=== PATIENT | female | born 1955 | race Caucasian/White ===

== ENCOUNTER 2018-09-29 12:31 | Inpatient (IN) | payer OTHER ==
[2018-09-29 17:45] VITALS: BMI 28.1
--- NOTE | 2018-09-29 18:51 | HP ---
CIWA Score Nausea/Vomitin Muscle Tremors: 4-Moderate,w/Arms Extend Anxiety: 3 Agitation: 0-Normal Activity Paroxysmal Sweats: 2 Orientation: 1-Uncertain about Date Tacttile Disturbances: 1-Very Mild Itch/Numbness Auditory Disturbances: 1-Very Mild Visual Disturbances: 2-Mild Sensitivity Headache: 2-Mild CIWA-Ar Total Score: 19 - Admission Criteria OASAS Guidelines: Admission for Medically Managed Detox: Requires at least one of the followin. CIWA greater than 12 2. Seizures within the past 24 hours 3. Delirium tremens within the past 24 hours 4. Hallucinations within the past 24 hours 5. Acute intervention needed for co occurring medical disorder 6. Acute intervention needed for co occurring psychiatric disorder 7. Severe withdrawal that cannot be handled at a lower level of care (continued vomiting, continued diarrhea, abnormal vital signs) requiring intravenous medication and/or fluids 8. Patient presents the following: CIWA greater than 12 Admission Criteria Met: Admission criteria met Admission ROS S - [facility] Chief Complaint: " I got the shakes and I need a drink" Allergies/Adverse Reactions: Allergies Allergy/AdvReac Type Severity Reaction Status Date / Time acetaminophen [From Tylenol] Allergy Verified 09/29/18 17:46 iron Allergy Verified 09/29/18 17:46 Penicillins Allergy Verified 09/29/18 17:46 History of Present Illness: 63 yo female with hx of alcohol, cocaine and nicotine dependence is here seeking detox d/t withdrawal symptoms reports relapse six months ago after 25 years of sobriety. Last detox one month ago at [facility]. PMHX: GERD, abdominal hernia, Hep C. Psych: anxiety, insomnia on meds. Denies SI/HI. Denies hx of seizures or blackouts Exam Limitations: No Limitations - Ebola screening Have you traveled outside of the country in the last 21 days: No Have you had contact with anyone from an Ebola affected area: No - Review of Systems Constitutional: Chills, Diaphoresis, Loss of Appetite, Changes in sleep, Other ( i got shakes) EENT: reports: Other (light sensitivity) Respiratory: reports: No Symptoms reported Cardiac: reports: No Symptoms Reported GI: reports: Nausea, Vomiting, Indigestion : reports: No Symptoms Reported Musculoskeletal: reports: Back Pain, Other (leg and back cramps) Integumentary: reports: No Symptoms Reported Neuro: reports: Tingling (finger tips), Tremors Endocrine: reports: Increased Thirst Hematology: reports: No Symptoms Reported Psychiatric: reports: Orientated x3, Anxious, Depressed Other Systems: Reviewed and Negative Patient History - Patient Medical History Hx Anemia: No Hx Asthma: No Hx Chronic Obstructive Pulmonary Disease (COPD): No Hx Cancer: No Hx Cardiac Disorders: No Hx Congestive Heart Failure: No Hx Hypertension: No Hx Hypercholesterolemia: No Hx Pacemaker: No HX Cerebrovascular Accident: No Hx Seizures: No Hx Dementia: No Hx Diabetes: No Hx Gastrointestinal Disorders: Yes (abdominal hernia, gerd ) Hx Liver Disease: Yes (Hep C ) Hx Genitourinary Disorders: No Hx Sexually Transmitted Disorders: Yes (gonorrhea ) Hx Renal Disease (ESRD): No Hx Thyroid Disease: No Hx Human Immunodeficiency Virus (HIV): No Hx Hepatitis C: Yes Hx Depression: No Hx Suicide Attempt: No Hx Bipolar Disorder: No Hx Schizophrenia: No - Patient Surgical History Past Surgical History: Yes Hx Cholecystectomy: Yes - PPD History Previous Implant?: No Documented Results: Negative w/o proof PPD to be Administered?: Yes - Reproductive History Patient is a Female of Child Bearing Age (11 -55 yrs old): No - Smoking Cessation Smoking history: Current every day smoker Have you smoked in the past 12 months: Yes Aproximately how many cigarettes per day: 10 Hx Chewing Tobacco Use: No Initiated information on smoking cessation: Yes 'Breaking Loose' booklet given: 09/29/18 - Substance & Tx. History Hx Alcohol Use: Yes Hx Substance Use: Yes Substance Use Type: Alcohol Hx Substance Use Treatment: Yes (detox [facility] one month ago ) - Substances abused Alcohol Substance route: Oral Frequency: Daily Amount used: liquor- 1/2 pint + beer: 1 - 2 six pack Age of first use: 25 Date of last use: 09/29/18 Cocaine Substance route: Inhalation Frequency: 3-6 times per week Amount used: $60 Age of first use: 25 Date of last use: 09/28/18 Admission Physical Exam BHS - Vital Signs Vital Signs: Vital Signs - 24 hr 09/29/18 17:40 Temperature 98.7 F Pulse Rate 79 Respiratory 18 Rate Blood Pressure 158/98 - Physical General Appearance: Yes: Appropriately Dressed, Moderate Distress, Tremorous, Sweating, Anxious HEENTM: Yes: EOMI, Hearing grossly Normal, Normal ENT Inspection, Normocephalic , Normal Voice, TYE, Pharynx Normal, Tm's normal Respiratory: Yes: Chest Non-Tender, Lungs Clear, Normal Breath Sounds, No Respiratory Distress, No Accessory Muscle Use Neck: Yes: Within Normal Limits Breast: Yes: Breast Exam Deferred Cardiology: Yes: Regular Rhythm, Regular Rate Abdominal: Yes: Normal Bowel Sounds, Non Tender, Flat, Soft Genitourinary: Yes: Within Normal Limits Back: Yes: Normal Inspection Musculoskeletal: Yes: full range of Motion, Gait Steady, Pelvis Stable, Back pain Extremities: Yes: Normal Capillary Refill, Normal Inspection, Normal Range of Motion, Non-Tender Neurological: Yes: power 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 NML intact, Fully Oriented, Alert, Motor Strength 5/5, Depressed Affect Integumentary: Yes: Normal Color, Warm, Diaphoresis Lymphatic: Yes: Within Normal Limits - Diagnostic (1) Alcohol dependence with uncomplicated withdrawal Current Visit: Yes Status: Acute (2) Cocaine dependence Current Visit: Yes Status: Acute (3) GERD (gastroesophageal reflux disease) Current Visit: Yes Status: Chronic (4) Hepatitis C, chronic Current Visit: Yes Status: Chronic (5) Elevated blood pressure reading without diagnosis of hypertension Current Visit: Yes Status: Acute Cleared for Admission S - Detox or Rehab S Level of Care: Medically Managed Detox Regimen/Protocol: Librium Breathalyzer - Breathalyzer Breathalyzer: 0.061 POC Urine test - Test device test lot number: [id number] Expiration date: 02/07/20 - Control test control: Yes - Result Urine Test Results: Negative - NO line present Urine Drug Screen - Test Device Lot number: [id number] Expiration date: 05/08/20 - Control Is test valid?: Yes - Results Drug screen NEGATIVE: No Urine drug screen results: QIANA-Cocaine Inpatient Rehab Admission - Rehab Decision to Admit Inpatient rehab admission?: No
[2018-09-29] MEDS ORDERED: IBUPROFEN 400 MG TABLET (FP) PO PRN (18:56)
[2018-09-29] MEDS ORDERED: NICOTINE POLACRILEX 2 MG GUM BUC PRN (18:56)
[2018-09-29] MEDS ORDERED: MENTHOL/PHENOL 1 EACH UD MM PRN (18:56)
[2018-09-29] MEDS ORDERED: ONDANSETRON *ODT* 4 MG TABLET SL PRN (18:56)
[2018-09-29] MEDS ORDERED: MAGNESIUM CITRATE 300 ML BOTTLE PO PRN (18:56)
[2018-09-29] MEDS ORDERED: METHOCARBAMOL 500 MG TABLET PO PRN (18:56)
[2018-09-29] MEDS ORDERED: guaiFENesin 200 MG/10 ML 10 ML UNIT-DOSE CUPS PO PRN (18:56)
[2018-09-29] MEDS ORDERED: hydrOXYzine PAMOATE 25 MG CAPSULE (FP) PO PRN (18:56)
[2018-09-29] MEDS ORDERED: MAG HYDROX/AL HYDROX/SIMETH 30 ML UNIT-DOSE CUP PO PRN (18:56)
[2018-09-29] MEDS ORDERED: BISMUTH SUBSALICYLATE 524 MG/30 ML UD PO PRN (18:56)
[2018-09-29] MEDS ORDERED: MELATONIN 5 MG TABLETS PO PRN (18:56)
[2018-09-29] MEDS ORDERED: P-EPHED 60MG/TRIPROLIDI 2.5MG TABLET PO PRN (18:56)
[2018-09-29] MEDS ORDERED: MAGNESIUM HYDROX 2400MG/30ML ORAL SUSPENSION 30 ML CUP PO PRN (18:56)
[2018-09-29] MEDS ORDERED: cloNIDine HCL 0.1 MG TABLET PO ONE (19:30)
[2018-09-29] MEDS: chlordiazePOXIDE HCL 25 MG CAPSULE PO PRN (19:44)
[2018-09-29] MEDS: chlordiazePOXIDE HCL 25 MG CAPSULE PO SCH (22:04)
[2018-09-29] MEDS: BACLOFEN 10 MG TABLET (FP) PO SCH (22:05)
[2018-09-29] MEDS: SIMETHICONE 80 MG TAB.CHEW (FP) PO SCH (22:05)
[2018-09-29] MEDS: THIAMINE HCL 100 MG TABLET (FP) PO SCH (22:05)
[2018-09-30] MEDS: BACLOFEN 10 MG TABLET (FP) PO SCH ×3 (06:03→22:21)
[2018-09-30] MEDS: chlordiazePOXIDE HCL 25 MG CAPSULE PO SCH ×4 (06:03→22:21)
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
[2018-09-30] MEDS: SIMETHICONE 80 MG TAB.CHEW (FP) PO SCH ×4 (10:15→22:21)
[2018-09-30] MEDS: NICOTINE 14 MG/24 HOURS TOPICAL PATCH TD SCH (10:16)
[2018-09-30 12:05] LABS: HEMATOCRIT 38.6 % (32.4-45.2); HEMOGLOBIN 12.8 GM/dL (10.7-15.3); MCH 33.7 pg (25.7-33.7); MCHC 33.1 g/dl (32.0-36.0); MEAN CELL VOLUME 101.9 fl (80-96); MEAN PLT VOLUME 10.8 fl (7.5-11.1); PLATELET COUNT 140 K/MM3 (134-434); RBC 3.79 M/mm3 (3.60-5.2); RDW 12.9 % (11.6-15.6); WHITE BLOOD COUNT 3.4 K/mm3 (4.0-10.0)
[2018-09-30 12:17] LABS: ALBUMIN 3.7 g/dl (3.4-5.0); ALK PHOS 91 U/L (45-117); ANION GAP 5 MMOL/L (8-16); BILIRUBIN,TOTAL 0.4 mg/dL (0.2-1); BLOOD UREA NITROGEN 15 mg/dL (7-18); CALCIUM 9.5 mg/dL (8.5-10.1); CHLORIDE 102 mmol/L (98-107); CO2 30 mmol/L (21-32); CREATININE 0.7 mg/dL (0.55-1.3); GLUCOSE,RANDOM 118 mg/dL (74-106); POTASSIUM 4.8 mmol/L (3.5-5.1); SGOT/AST 17 U/L (15-37); SGPT/ALT 27 U/L (13-61); SODIUM 137 mmol/L (136-145); TOT PROT 7.5 g/dl (6.4-8.2)
--- NOTE | 2018-09-30 12:20 | PN ---
S CIWA - CIWA Score Nausea/Vomitin-No Nausea/No Vomiting Muscle Tremors: 4-Moderate,w/Arms Extend Anxiety: 4-Mod. Anxious/Guarded Agitation: 4-Moderately Restless Paroxysmal Sweats: 3 Orientation: 0-Oriented Tacttile Disturbances: 0-None Auditory Disturbances: 0-None Visual Disturbances: 0-None Headache: 0-None Present CIWA-Ar Total Score: 15 BHS Progress Note (SOAP) Subjective: shakes sweats interrupted sleep body aches agitation Objective: 09/30/18 12:19 Vital Signs Temperature 97.7 F 09/30/18 10:42 Pulse Rate 89 09/30/18 10:42 Respiratory Rate 18 09/30/18 10:42 Blood Pressure 122/85 09/30/18 10:42 O2 Sat by Pulse Oximetry (%) Laboratory Tests 09/30/18 09/30/18 07:30 07:30 WBC 3.4 L RBC 3.79 Hgb 12.8 Hct 38.6 MCV 101.9 H MCH 33.7 MCHC 33.1 RDW 12.9 Plt Count 140 MPV 10.8 Sodium 137 Potassium 4.8 Chloride 102 Carbon Dioxide 30 Anion Gap 5 L BUN 15 Creatinine 0.7 Creat Clearance w eGFR 84.79 Random Glucose 118 H Calcium 9.5 Total Bilirubin 0.4 AST 17 ALT 27 Alkaline Phosphatase 91 Total Protein 7.5 Albumin 3.7 aaox3 ambulating no acute distress Assessment: 09/30/18 12:19 withdrawal sx Plan: continue detox increase fluids
--- NOTE | 2018-09-30 12:30 | EKG ---
Test Reason : Blood Pressure : / mmHG Vent. Rate : 073 BPM Atrial Rate : 073 BPM P-R Int : 108 ms QRS Dur : 082 ms QT Int : 390 ms P-R-T Axes : 044 039 029 degrees QTc Int : 429 ms SINUS RHYTHM WITH SHORT AL OTHERWISE NORMAL ECG NO PREVIOUS ECGS AVAILABLE Confirmed by TAVIA RENDON, MEENAKSHI ([id number]) on 09/30/2018 12:29:35 PM Referred By: Confirmed By:MEENAKSHI SQUIRES MD
[2018-09-30] MEDS: hydrOXYzine PAMOATE 50 MG CAPSULE (FP) PO PRN (17:47)
[2018-09-30] MEDS: THIAMINE HCL 100 MG TABLET (FP) PO SCH (22:21)
[2018-10-01] MEDS: chlordiazePOXIDE HCL 25 MG CAPSULE PO SCH ×3 (05:57→16:33)
[2018-10-01] MEDS: BACLOFEN 10 MG TABLET (FP) PO SCH ×3 (05:57→22:06)
[2018-10-01] MEDS: NICOTINE 14 MG/24 HOURS TOPICAL PATCH TD SCH (10:11)
[2018-10-01] MEDS: SIMETHICONE 80 MG TAB.CHEW (FP) PO SCH ×4 (10:12→22:06)
[2018-10-01] MEDS: hydrOXYzine PAMOATE 50 MG CAPSULE (FP) PO PRN ×3 (10:14→22:06)
[2018-10-01 10:23] LABS: EPI CELLS 2.6 /HPF (0-5/HPF); URINE APPEARANCE CLEAR; URINE BACTERIA 45.2 /hpf (NEGATIVE); URINE BILIRUBIN NEGATIVE (NEGATIVE); URINE CASTS 1 /lpf (0-8); URINE COLOR YELLOW; URINE GLUCOSE (UA) NEGATIVE (NEGATIVE); URINE KETONE NEGATIVE (NEGATIVE); URINE LEUK ESTERASE TRACE (NEGATIVE); URINE NITRITE NEGATIVE (NEGATIVE); URINE PROTEIN NEGATIVE (NEGATIVE); URINE UROBILINOGEN 0.2 mg/dL (0.2-1.0); URINE WBC 4 /hpf (0-5)
[2018-10-01 11:17] LABS: URINE RBC 3.2 /hpf (0-4)
[2018-10-01] MEDS: chlordiazePOXIDE HCL 25 MG CAPSULE PO PRN (12:53)
--- NOTE | 2018-10-01 13:51 | PN ---
[facility] CIWA - CIWA Score Nausea/Vomitin-No Nausea/No Vomiting Muscle Tremors: 3 Anxiety: 3 Agitation: 3 Paroxysmal Sweats: 3 Orientation: 0-Oriented Tacttile Disturbances: 0-None Auditory Disturbances: 0-None Visual Disturbances: 0-None Headache: 0-None Present CIWA-Ar Total Score: 12 S Progress Note (SOAP) Subjective: agitation sweats shakes interrupted sleep Objective: 10/01/18 13:51 Vital Signs Temperature 97.9 F 10/01/18 09:15 Pulse Rate 83 10/01/18 09:15 Respiratory Rate 18 10/01/18 09:15 Blood Pressure 134/68 10/01/18 09:15 O2 Sat by Pulse Oximetry (%) Laboratory Tests 09/30/18 09/30/18 09/30/18 07:30 07:30 07:30 WBC 3.4 L RBC 3.79 Hgb 12.8 Hct 38.6 MCV 101.9 H MCH 33.7 MCHC 33.1 RDW 12.9 Plt Count 140 MPV 10.8 Sodium 137 Potassium 4.8 Chloride 102 Carbon Dioxide 30 Anion Gap 5 L BUN 15 Creatinine 0.7 Creat Clearance w eGFR 84.79 Random Glucose 118 H Calcium 9.5 Total Bilirubin 0.4 AST 17 ALT 27 Alkaline Phosphatase 91 Total Protein 7.5 Albumin 3.7 Urine Color Urine Appearance Urine pH Ur Specific [place] Urine Protein Urine Glucose (UA) Urine Ketones Urine Blood Urine Nitrite Urine Bilirubin Urine Urobilinogen Ur Leukocyte Esterase Urine WBC (Auto) Urine RBC (Auto) Urine Casts (Auto) U Epithel Cells (Auto) Urine Bacteria (Auto) RPR Titer Nonreactive 10/01/18 07:00 WBC RBC Hgb Hct MCV MCH MCHC RDW Plt Count MPV Sodium Potassium Chloride Carbon Dioxide Anion Gap BUN Creatinine Creat Clearance w eGFR Random Glucose Calcium Total Bilirubin AST ALT Alkaline Phosphatase Total Protein Albumin Urine Color Yellow Urine Appearance Clear Urine pH 5.0 Ur Specific [place] 1.017 Urine Protein Negative Urine Glucose (UA) Negative Urine Ketones Negative Urine Blood Negative Urine Nitrite Negative Urine Bilirubin Negative Urine Urobilinogen 0.2 Ur Leukocyte Esterase Trace Urine WBC (Auto) 4 Urine RBC (Auto) 3.2 Urine Casts (Auto) 1 U Epithel Cells (Auto) 2.6 Urine Bacteria (Auto) 45.2 RPR Titer labs noted aaox3 ambulating no acute distress Assessment: 10/01/18 13:51 withdrawal sx Plan: continue detox increase fluids
--- NOTE | 2018-10-01 17:47 | PN ---
S Progress Note Note: Vital Signs Temperature 98.2 F 10/01/18 17:30 Pulse Rate 91 H 10/01/18 17:30 Respiratory Rate 18 10/01/18 17:30 Blood Pressure 155/80 10/01/18 17:30 O2 Sat by Pulse Oximetry (%) c/o of withdrawal symptoms and tremors with minor relief from og and baclofen Patient anxious, + hand tremors, full ROM ambulating in the unit withdrawal sx gabapentin tin 100 mg TID increase po fluids continue to monitor
[2018-10-01] MEDS: chlordiazePOXIDE HCL 10 MG CAPSULE PO SCH (22:06)
[2018-10-01] MEDS: THIAMINE HCL 100 MG TABLET (FP) PO SCH (22:06)
[2018-10-01] MEDS: GABAPENTIN 100 MG CAPSULE (FP) PO SCH (22:06)
[2018-10-01] MEDS ORDERED: chlordiazePOXIDE HCL 10 MG CAPSULE PO PRN (23:00)
[2018-10-02] MEDS: chlordiazePOXIDE HCL 10 MG CAPSULE PO SCH ×2 (05:56→10:09)
[2018-10-02] MEDS: GABAPENTIN 100 MG CAPSULE (FP) PO SCH (05:56)
[2018-10-02] MEDS: BACLOFEN 10 MG TABLET (FP) PO SCH (05:56)
[2018-10-02 09:26] VITALS: BP 148/89; PULSE 86; TEMP 97.7
[2018-10-02] MEDS: SIMETHICONE 80 MG TAB.CHEW (FP) PO SCH (10:09)
[2018-10-02] MEDS: NICOTINE 14 MG/24 HOURS TOPICAL PATCH TD SCH (10:10)
[2018-10-02] MEDS ORDERED: MULTIVITAMINS (DAILY MVI) TABLET (FP) PO SCH (10:30)
--- NOTE | 2018-10-02 11:56 | PN ---
[facility] Progress Note Note: pt states she needs to go home and take care of personal business.pt was encouraged to stay and continue her detox but insisted on leaving and signed out AMA.
--- NOTE | 2018-10-02 13:12 | DS ---
[facility] Detox Discharge Summary Admission Date: 09/29/18 - History Present History: Alcohol Dependence, Cocaine Dependence - Physical Exam Results Vital Signs: Vital Signs Temperature 97.7 F 10/02/18 09:26 Pulse Rate 86 10/02/18 09:26 Respiratory Rate 18 10/02/18 09:26 Blood Pressure 148/89 10/02/18 09:26 O2 Sat by Pulse Oximetry (%) - Treatment Hospital Course: Discharged Condition Good - Medication Discharge Medications: Ambulatory Orders Cholecalciferol (Vitamin D3) [Vitamin D3 -] 1,000 unit PO DAILY 09/29/18 Simethicone [Mylicon -] 80 mg PO QID 09/29/18 - Diagnosis (1) Alcohol dependence with uncomplicated withdrawal Status: Chronic (2) Cocaine dependence Status: Chronic Qualifiers: Substance use status: uncomplicated Qualified Code(s): F14.20 - Cocaine dependence, uncomplicated (3) Elevated blood pressure reading without diagnosis of hypertension Status: Acute (4) Substance-induced sleep disorder Status: Acute (5) Anxiety disorder Status: Chronic (6) GERD (gastroesophageal reflux disease) Status: Chronic (7) Hepatitis C, chronic Status: Chronic (8) Nicotine dependence Status: Chronic Qualifiers: Nicotine product type: cigarettes Substance use status: uncomplicated Qualified Code(s): F17.210 - Nicotine dependence, cigarettes, uncomplicated (9) PTSD (post-traumatic stress disorder) Status: Ruled-out - AMA Did Patient Leave Against Medical Advice: Yes (declined aftercare; going home)
[2018-10-02] MEDS ORDERED: chlordiazePOXIDE HCL 10 MG CAPSULE PO SCH (23:00)
== END 2018-10-02 11:05 | disposition left against medical advice (07) | DRG 770 ==
LOC: YASAS 12:31 → Y6N 19:11
PROVIDERS: ADMIT Surgery; ATTEND Surgery
PROC: HZ2ZZZZ Detoxification Services for Substance Abuse Treatment (ICD-10-PCS; principal; 2018-09-29)
DX: F10.230 Alcohol dependence with withdrawal, uncomplicated (principal); F14.20 Cocaine dependence, uncomplicated; F17.210 Nicotine dependence, cigarettes, uncomplicated; F19.282 Other psychoactive substance dependence with psychoactive substance-induced sleep disorder; F43.10 Post-traumatic stress disorder, unspecified; F41.9 Anxiety disorder, unspecified; R03.0 Elevated blood-pressure reading, without diagnosis of hypertension; B18.2 Chronic viral hepatitis C; K21.9 Gastro-esophageal reflux disease without esophagitis; Z88.0 Allergy status to penicillin; Z88.8 Allergy status to other drugs, medicaments and biological substances
CPT/HCPCS: 36415; 80053; 81003; 85027; 86593; 93005; 93010; J0475; J0735

== ENCOUNTER 2018-11-17 14:22 | Inpatient (IN) | payer OTHER ==
[2018-11-17 16:32] VITALS: BMI 27.3
--- NOTE | 2018-11-17 20:16 | HP ---
CIWA Score Nausea/Vomitin-Mild Nausea/No Vomiting Muscle Tremors: 3 Anxiety: 2 Agitation: 2 Paroxysmal Sweats: 2 Orientation: 0-Oriented Tacttile Disturbances: 0-None Auditory Disturbances: 0-None Visual Disturbances: 0-None Headache: 2-Mild CIWA-Ar Total Score: 12 - Admission Criteria OASAS Guidelines: Admission for Medically Managed Detox: Requires at least one of the followin. CIWA greater than 12 2. Seizures within the past 24 hours 3. Delirium tremens within the past 24 hours 4. Hallucinations within the past 24 hours 5. Acute intervention needed for co occurring medical disorder 6. Acute intervention needed for co occurring psychiatric disorder 7. Severe withdrawal that cannot be handled at a lower level of care (continued vomiting, continued diarrhea, abnormal vital signs) requiring intravenous medication and/or fluids 8. Patient presents the following: CIWA greater than 12 Admission Criteria Met: Admission criteria met Admission ROS [facility] Chief Complaint: alcohol detox 63 yo with arthritis, ? cured HCV, on hydroxyzine 25 mg for sleeping, was last here 2 months ago for the same. Says she restarted drinking immediately. [facility] Used to work, retired 2011. Last drink this morning alcohol- 25 cans of beer every day, h/o seizures, no DT's cocaine $60/day DUR- no recent meds Allergies/Adverse Reactions: Allergies Allergy/AdvReac Type Severity Reaction Status Date / Time acetaminophen [From Tylenol] Allergy Verified 11/17/18 16:23 iron Allergy Verified 11/17/18 16:23 Penicillins Allergy Verified 11/17/18 16:23 - Ebola screening Have you traveled outside of the country in the last 21 days: No (N) Have you had contact with anyone from an Ebola affected area: No Do you have a fever: No Patient History - Patient Medical History Hx Anemia: No Hx Asthma: No Hx Chronic Obstructive Pulmonary Disease (COPD): No Hx Cancer: No Hx Cardiac Disorders: No Hx Congestive Heart Failure: No Hx Hypertension: No Hx Hypercholesterolemia: No Hx Pacemaker: No HX Cerebrovascular Accident: No Hx Seizures: No Hx Dementia: No Hx Diabetes: No Hx Gastrointestinal Disorders: Yes (abdominal hernia, gerd ) Hx Liver Disease: Yes (Hep C ) Hx Genitourinary Disorders: No Hx Sexually Transmitted Disorders: Yes (gonorrhea ) Hx Renal Disease (ESRD): No Hx Thyroid Disease: No Hx Human Immunodeficiency Virus (HIV): No Hx Hepatitis C: Yes Hx Depression: No Hx Suicide Attempt: No Hx Bipolar Disorder: No Hx Schizophrenia: No - Patient Surgical History Past Surgical History: Yes Hx Neurologic Surgery: No Hx Cataract Extraction: No Hx Cardiac Surgery: No Hx Lung Surgery: No Hx Breast Surgery: No Hx Breast Biopsy: No Hx Abdominal Surgery: No Hx Appendectomy: No Hx Cholecystectomy: Yes Hx Genitourinary Surgery: No Hx Section: No Hx Orthopedic Surgery: No Anesthesia Reaction: No - PPD History Date: 10/01/18 - Smoking Cessation Smoking history: Current every day smoker Have you smoked in the past 12 months: Yes Aproximately how many cigarettes per day: 10 Hx Chewing Tobacco Use: No Initiated information on smoking cessation: Yes 'Breaking Loose' booklet given: 11/17/18 - Substance & Tx. History Hx Alcohol Use: Yes Hx Substance Use: Yes Substance Use Type: Alcohol, Cocaine - Substances abused Alcohol Substance route: Oral Frequency: Daily Amount used: liquor- 1/2 pint + beer: 1 - 2 six pack Age of first use: 25 Date of last use: 11/17/18 Cocaine Substance route: Inhalation Frequency: 3-6 times per week Amount used: $60 Age of first use: 25 Date of last use: 11/16/18 Family Disease History - Family Disease History Family History: Denies Family Disease History: Diabetes: Mother, Heart Disease: Mother Admission Physical Exam BHS - Vital Signs Vital Signs: Vital Signs - 24 hr 11/17/18 16:23 Temperature 99.0 F Pulse Rate 96 H Respiratory 16 Rate Blood Pressure 144/82 - Physical General Appearance: Yes: Within Normal Limits, Anxious HEENTM: Yes: Within Normal Limits, Hearing grossly Normal, Normal Voice, TYE Respiratory: Yes: Within Normal Limits, Lungs Clear Neck: Yes: Within Normal Limits, No masses,lesions,Nodules Cardiology: Yes: Within Normal Limits, Regular Rhythm, Regular Rate Abdominal: Yes: Within Normal Limits, Non Tender Back: Yes: Within Normal Limits, Normal Inspection Musculoskeletal: Yes: Within Normal Limits, full range of Motion, Gait Steady Extremities: Yes: Within Normal Limits, Normal Capillary Refill Neurological: Yes: Within Normal Limits, clerk general II-XII NML intact, Fully Oriented Integumentary: Yes: Within Normal Limits, Normal Color Lymphatic: Yes: Within Normal Limits - Diagnostic (1) Alcohol dependence with uncomplicated withdrawal Current Visit: No Status: Chronic (2) Cocaine dependence Current Visit: No Status: Chronic Qualifiers: Substance use status: uncomplicated Qualified Code(s): F14.20 - Cocaine dependence, uncomplicated (3) Nicotine dependence Current Visit: No Status: Chronic Qualifiers: Nicotine product type: cigarettes Substance use status: uncomplicated Qualified Code(s): F17.210 - Nicotine dependence, cigarettes, uncomplicated Breathalyzer - Breathalyzer Breathalyzer: 0 POC Urine test - Test device test lot number: [id number] Expiration date: 02/07/20 - Control test control: Yes Urine Drug Screen - Test Device Lot number: [id number] Expiration date: 08/06/20 - Control Is test valid?: Yes - Results Drug screen NEGATIVE: No Urine drug screen results: QIANA-Cocaine, BUP-Suboxone Inpatient Rehab Admission - Rehab Decision to Admit Inpatient rehab admission?: No
[2018-11-17] MEDS ORDERED: METHOCARBAMOL 500 MG TABLET PO PRN (20:21)
[2018-11-17] MEDS ORDERED: BISMUTH SUBSALICYLATE 524 MG/30 ML UD PO PRN (20:21)
[2018-11-17] MEDS ORDERED: MAGNESIUM HYDROX 2400MG/30ML ORAL SUSPENSION 30 ML CUP PO PRN (20:21)
[2018-11-17] MEDS ORDERED: IBUPROFEN 400 MG TABLET (FP) PO PRN (20:21)
[2018-11-17] MEDS ORDERED: ACETAMINOPHEN 325 MG TABLET (FP) PO PRN ×2 (20:21)
[2018-11-17] MEDS ORDERED: chlordiazePOXIDE HCL 25 MG CAPSULE PO ONE (20:21)
[2018-11-17] MEDS ORDERED: MAGNESIUM CITRATE 300 ML BOTTLE PO PRN (20:21)
[2018-11-17] MEDS ORDERED: MENTHOL/PHENOL 1 EACH UD MM PRN (20:21)
[2018-11-17] MEDS ORDERED: MAG HYDROX/AL HYDROX/SIMETH 30 ML UNIT-DOSE CUP PO PRN (20:21)
[2018-11-17] MEDS: chlordiazePOXIDE HCL 25 MG CAPSULE PO SCH (22:43)
[2018-11-17] MEDS: THIAMINE HCL 100 MG TABLET (FP) PO SCH (22:43)
[2018-11-17] MEDS: MELATONIN 5 MG TABLETS PO PRN (22:44)
[2018-11-17] MEDS: SIMETHICONE 80 MG TAB.CHEW (FP) PO SCH (23:01)
[2018-11-18] MEDS: chlordiazePOXIDE HCL 25 MG CAPSULE PO SCH ×4 (06:46→22:36)
[2018-11-18] MEDS: SIMETHICONE 80 MG TAB.CHEW (FP) PO SCH ×4 (10:06→22:36)
[2018-11-18] MEDS: NICOTINE 14 MG/24 HOURS TOPICAL PATCH TD SCH (10:06)
[2018-11-18] MEDS: PRENATAL VITAMINS W/ FOLIC ACID TABLET (FP) PO SCH (10:06)
[2018-11-18] MEDS: CHOLECALCIFEROL (VIT D3) 1,000 UNIT (25 MCG) TABLET PO SCH (10:06)
--- NOTE | 2018-11-18 11:13 | PN ---
S CIWA - CIWA Score Nausea/Vomitin-No Nausea/No Vomiting Muscle Tremors: 3 Anxiety: 2 Agitation: 3 Paroxysmal Sweats: 3 Orientation: 0-Oriented Tacttile Disturbances: 0-None Auditory Disturbances: 0-None Visual Disturbances: 0-None Headache: 0-None Present CIWA-Ar Total Score: 11 BHS Progress Note (SOAP) Subjective: sweats tired shakes interrupted sleep body aches Objective: 11/18/18 11:24 Vital Signs Temperature 96.8 F L 11/18/18 09:59 Pulse Rate 81 11/18/18 09:59 Respiratory Rate 16 11/18/18 09:59 Blood Pressure 145/65 11/18/18 09:59 O2 Sat by Pulse Oximetry (%) Laboratory Tests 11/17/18 20:08 POC Urine HCG, Qual Negative rest of labs pending aaox3 ambulating no acute distress Assessment: 11/18/18 11:24 withdrawal sx Plan: continue detox increase fluids pending labs
[2018-11-18 12:20] LABS: HEMATOCRIT 37.4 % (32.4-45.2); HEMOGLOBIN 12.2 GM/dL (10.7-15.3); MCHC 32.6 g/dl (32.0-36.0); MEAN CELL VOLUME 101.2 fl (80-96); MEAN PLT VOLUME 10.1 fl (7.5-11.1); WHITE BLOOD COUNT 3.9 K/mm3 (4.0-10.0)
[2018-11-18 12:24] LABS: PLATELET COUNT 156 K/MM3 (134-434)
[2018-11-18 12:27] LABS: ALBUMIN 3.3 g/dl (3.4-5.0); BILIRUBIN,TOTAL 0.3 mg/dL (0.2-1); BLOOD UREA NITROGEN 14.3 mg/dL (7-18); CALCIUM 8.9 mg/dL (8.5-10.1); CREATININE 0.8 mg/dL (0.55-1.3); POTASSIUM 4.2 mmol/L (3.5-5.1); TOT PROT 6.5 g/dl (6.4-8.2)
[2018-11-18] MEDS: chlordiazePOXIDE HCL 25 MG CAPSULE PO PRN (14:05)
[2018-11-18 18:10] LABS: EPI CELLS 8.7 /HPF (0-5/HPF); HYALINE CASTS 22 /lpf (0-8); URINE APPEARANCE CLEAR; URINE BACTERIA 267.8 /hpf (NEGATIVE); URINE BILIRUBIN NEGATIVE (NEGATIVE); URINE COLOR DK YELLOW; URINE GLUCOSE (UA) NEGATIVE (NEGATIVE); URINE KETONE TRACE (NEGATIVE); URINE LEUK ESTERASE TRACE (NEGATIVE); URINE NITRITE NEGATIVE (NEGATIVE); URINE PROTEIN NEGATIVE (NEGATIVE); URINE RBC 3 /hpf (0-4); URINE UROBILINOGEN 0.2 mg/dL (0.2-1.0); URINE WBC 4 /hpf (0-5)
[2018-11-18 18:58] LABS: URINE CRYSTALS SEE COMMEN /hpf
[2018-11-18] MEDS: THIAMINE HCL 100 MG TABLET (FP) PO SCH (22:36)
[2018-11-18] MEDS: MELATONIN 5 MG TABLETS PO PRN (22:36)
[2018-11-19] MEDS: chlordiazePOXIDE HCL 25 MG CAPSULE PO SCH ×3 (06:11→17:34)
[2018-11-19] MEDS: CHOLECALCIFEROL (VIT D3) 1,000 UNIT (25 MCG) TABLET PO SCH (10:36)
[2018-11-19] MEDS: NICOTINE 14 MG/24 HOURS TOPICAL PATCH TD SCH (10:36)
[2018-11-19] MEDS: PRENATAL VITAMINS W/ FOLIC ACID TABLET (FP) PO SCH (10:36)
[2018-11-19] MEDS: SIMETHICONE 80 MG TAB.CHEW (FP) PO SCH ×4 (10:39→22:07)
--- NOTE | 2018-11-19 12:02 | PN ---
[facility] CIWA - CIWA Score Nausea/Vomitin-No Nausea/No Vomiting Muscle Tremors: 3 Anxiety: 3 Agitation: 2 Paroxysmal Sweats: 2 Orientation: 0-Oriented Tacttile Disturbances: 0-None Auditory Disturbances: 0-None Visual Disturbances: 0-None Headache: 0-None Present CIWA-Ar Total Score: 10 S Progress Note (SOAP) Subjective: low back pain sweats interrupted sleep Objective: 11/19/18 12:01 Vital Signs Temperature 97.7 F 11/19/18 09:24 Pulse Rate 80 11/19/18 09:24 Respiratory Rate 16 11/19/18 09:24 Blood Pressure 154/81 11/19/18 09:24 O2 Sat by Pulse Oximetry (%) Laboratory Tests 11/17/18 11/18/18 11/18/18 20:08 07:30 07:30 WBC 3.9 L RBC 3.70 Hgb 12.2 Hct 37.4 MCV 101.2 H MCH 33.0 MCHC 32.6 RDW 13.0 Plt Count 156 MPV 10.1 Sodium 137 Potassium 4.2 Chloride 108 H Carbon Dioxide 28 Anion Gap 2 L BUN 14.3 Creatinine 0.8 Est GFR (CKD-EPI)AfAm 91.58 Est GFR (CKD-EPI)NonAf 79.01 Random Glucose 114 H Calcium 8.9 Total Bilirubin 0.3 AST 20 ALT 31 Alkaline Phosphatase 104 Total Protein 6.5 Albumin 3.3 L Urine Color Urine Appearance Urine pH Ur Specific [place] Urine Protein Urine Glucose (UA) Urine Ketones Urine Blood Urine Nitrite Urine Bilirubin Urine Urobilinogen Ur Leukocyte Esterase Urine WBC (Auto) Urine RBC (Auto) Urine Casts (Auto) U Pathogenic Cast Auto U Epithel Cells (Auto) Urine Crystals (Auto) Urine Bacteria (Auto) POC Urine HCG, Qual Negative RPR Titer HIV 1&2 Antibody Screen HIV P24 Antigen 11/18/18 11/18/18 11/18/18 07:30 07:30 11:20 WBC RBC Hgb Hct MCV MCH MCHC RDW Plt Count MPV Sodium Potassium Chloride Carbon Dioxide Anion Gap BUN Creatinine Est GFR (CKD-EPI)AfAm Est GFR (CKD-EPI)NonAf Random Glucose Calcium Total Bilirubin AST ALT Alkaline Phosphatase Total Protein Albumin Urine Color Dk yellow Urine Appearance Clear Urine pH 5.0 Ur Specific [place] 1.024 Urine Protein Negative Urine Glucose (UA) Negative Urine Ketones Trace H Urine Blood Negative Urine Nitrite Negative Urine Bilirubin Negative Urine Urobilinogen 0.2 Ur Leukocyte Esterase Trace Urine WBC (Auto) 4 Urine RBC (Auto) 3 Urine Casts (Auto) 22 U Pathogenic Cast Auto None seen U Epithel Cells (Auto) 8.7 Urine Crystals (Auto) See commen Urine Bacteria (Auto) 267.8 POC Urine HCG, Qual RPR Titer Nonreactive HIV 1&2 Antibody Screen Negative HIV P24 Antigen Negative labs noted aaox3 lying in bed no acute distress Assessment: 11/19/18 12:02 withdrawal sx Plan: continue detox increase fluids lidocaine patch ordered motrin 600mg prn
[2018-11-19] MEDS ORDERED: LIDOCAINE 5% TOPICAL PATCH TP ONE (12:03)
[2018-11-19] MEDS ORDERED: IBUPROFEN 600 MG TABLET (FP) PO PRN (12:03)
[2018-11-19] MEDS: chlordiazePOXIDE HCL 25 MG CAPSULE PO PRN (14:32)
[2018-11-19] MEDS: hydrOXYzine PAMOATE 25 MG CAPSULE (FP) PO PRN ×2 (17:34→23:15)
[2018-11-19] MEDS: chlordiazePOXIDE HCL 10 MG CAPSULE PO SCH (22:06)
[2018-11-19] MEDS: THIAMINE HCL 100 MG TABLET (FP) PO SCH (22:07)
[2018-11-19] MEDS: MELATONIN 5 MG TABLETS PO PRN (22:07)
[2018-11-19] MEDS: LIDOCAINE PATCH REMOVAL MC SCH (22:09)
[2018-11-19] MEDS ORDERED: chlordiazePOXIDE HCL 10 MG CAPSULE PO PRN (23:00)
[2018-11-20] MEDS: chlordiazePOXIDE HCL 10 MG CAPSULE PO SCH ×4 (06:46→22:05)
[2018-11-20] MEDS ORDERED: LIDOCAINE 5% TOPICAL PATCH TP SCH ×2 (10:00→11:11)
[2018-11-20] MEDS: SIMETHICONE 80 MG TAB.CHEW (FP) PO SCH ×4 (10:29→22:05)
[2018-11-20] MEDS: PRENATAL VITAMINS W/ FOLIC ACID TABLET (FP) PO SCH (10:29)
[2018-11-20] MEDS: NICOTINE 14 MG/24 HOURS TOPICAL PATCH TD SCH (10:30)
[2018-11-20] MEDS: CHOLECALCIFEROL (VIT D3) 1,000 UNIT (25 MCG) TABLET PO SCH (10:30)
[2018-11-20] MEDS ORDERED: chlordiazePOXIDE HCL 10 MG CAPSULE PO PRN (11:10)
--- NOTE | 2018-11-20 11:22 | PN ---
[facility] CIWA - CIWA Score Nausea/Vomitin-No Nausea/No Vomiting Muscle Tremors: 3 Anxiety: 2 Agitation: 3 Paroxysmal Sweats: 2 Orientation: 0-Oriented Tacttile Disturbances: 0-None Auditory Disturbances: 0-None Visual Disturbances: 0-None Headache: 0-None Present CIWA-Ar Total Score: 10 S Progress Note (SOAP) Subjective: sweats low back pain agitation Objective: 11/20/18 11:21 Vital Signs Temperature 96.7 F L 11/20/18 09:53 Pulse Rate 85 11/20/18 09:53 Respiratory Rate 18 11/20/18 09:53 Blood Pressure 147/71 11/20/18 09:53 O2 Sat by Pulse Oximetry (%) Laboratory Tests 11/17/18 11/18/18 11/18/18 20:08 07:30 07:30 WBC 3.9 L RBC 3.70 Hgb 12.2 Hct 37.4 MCV 101.2 H MCH 33.0 MCHC 32.6 RDW 13.0 Plt Count 156 MPV 10.1 Sodium 137 Potassium 4.2 Chloride 108 H Carbon Dioxide 28 Anion Gap 2 L BUN 14.3 Creatinine 0.8 Est GFR (CKD-EPI)AfAm 91.58 Est GFR (CKD-EPI)NonAf 79.01 Random Glucose 114 H Calcium 8.9 Total Bilirubin 0.3 AST 20 ALT 31 Alkaline Phosphatase 104 Total Protein 6.5 Albumin 3.3 L Urine Color Urine Appearance Urine pH Ur Specific [place] Urine Protein Urine Glucose (UA) Urine Ketones Urine Blood Urine Nitrite Urine Bilirubin Urine Urobilinogen Ur Leukocyte Esterase Urine WBC (Auto) Urine RBC (Auto) Urine Casts (Auto) U Pathogenic Cast Auto U Epithel Cells (Auto) Urine Crystals (Auto) Urine Bacteria (Auto) POC Urine HCG, Qual Negative RPR Titer HIV 1&2 Antibody Screen HIV P24 Antigen 11/18/18 11/18/18 11/18/18 07:30 07:30 11:20 WBC RBC Hgb Hct MCV MCH MCHC RDW Plt Count MPV Sodium Potassium Chloride Carbon Dioxide Anion Gap BUN Creatinine Est GFR (CKD-EPI)AfAm Est GFR (CKD-EPI)NonAf Random Glucose Calcium Total Bilirubin AST ALT Alkaline Phosphatase Total Protein Albumin Urine Color Dk yellow Urine Appearance Clear Urine pH 5.0 Ur Specific [place] 1.024 Urine Protein Negative Urine Glucose (UA) Negative Urine Ketones Trace H Urine Blood Negative Urine Nitrite Negative Urine Bilirubin Negative Urine Urobilinogen 0.2 Ur Leukocyte Esterase Trace Urine WBC (Auto) 4 Urine RBC (Auto) 3 Urine Casts (Auto) 22 U Pathogenic Cast Auto None seen U Epithel Cells (Auto) 8.7 Urine Crystals (Auto) See commen Urine Bacteria (Auto) 267.8 POC Urine HCG, Qual RPR Titer Nonreactive HIV 1&2 Antibody Screen Negative HIV P24 Antigen Negative aaox3 ambulating no acute distress Assessment: 11/20/18 11:21 withdrawal sx Plan: continue detox 2 lidocaine patches
[2018-11-20] MEDS: chlordiazePOXIDE HCL 25 MG CAPSULE PO PRN ×2 (13:57→19:48)
--- NOTE | 2018-11-20 20:31 | PN ---
S Progress Note (SOAP) Subjective: c/o bonifacio back and kidney pain. States has been a problem for years and PCP is aware. States there are lumps. Denies burning w/ urination. . Objective: Alert. Tremors at rest which increase w/ arm elevation. Abd S/NT/BS+. Lungs CTA. C/o CVA tenderness upon examination.. No increased erythema. No masses, Vital Signs 11/20/18 11/20/18 13:23 17:55 Temperature 98.1 F 98.1 F Pulse Rate 83 92 H Respiratory 16 16 Rate Blood Pressure 158/70 152/79 Current B/P: 158/108; HR: 102; o2 Stat=97%. Laboratory Last Values WBC 3.9 K/mm3 (4.0-10.0) L 11/18/18 07:30 RBC 3.70 M/mm3 (3.60-5.2) 11/18/18 07:30 Hgb 12.2 GM/dL (10.7-15.3) 11/18/18 07:30 Hct 37.4 % (32.4-45.2) 11/18/18 07:30 MCV 101.2 fl (80-96) H 11/18/18 07:30 MCH 33.0 pg (25.7-33.7) 11/18/18 07:30 MCHC 32.6 g/dl (32.0-36.0) 11/18/18 07:30 RDW 13.0 % (11.6-15.6) 11/18/18 07:30 Plt Count 156 K/MM3 (134-434) 11/18/18 07:30 MPV 10.1 fl (7.5-11.1) 11/18/18 07:30 Sodium 137 mmol/L (136-145) 11/18/18 07:30 Potassium 4.2 mmol/L (3.5-5.1) 11/18/18 07:30 Chloride 108 mmol/L (98-107) H 11/18/18 07:30 Carbon Dioxide 28 mmol/L (21-32) 11/18/18 07:30 Anion Gap 2 MMOL/L (8-16) L 11/18/18 07:30 BUN 14.3 mg/dL (7-18) 11/18/18 07:30 Creatinine 0.8 mg/dL (0.55-1.3) 11/18/18 07:30 Est GFR (CKD-EPI)AfAm 91.58 11/18/18 07:30 Est GFR (CKD-EPI)NonAf 79.01 11/18/18 07:30 Random Glucose 114 mg/dL (74-106) H 11/18/18 07:30 Calcium 8.9 mg/dL (8.5-10.1) 11/18/18 07:30 Total Bilirubin 0.3 mg/dL (0.2-1) 11/18/18 07:30 AST 20 U/L (15-37) 11/18/18 07:30 ALT 31 U/L (13-61) 11/18/18 07:30 Alkaline Phosphatase 104 U/L (45-117) 11/18/18 07:30 Total Protein 6.5 g/dl (6.4-8.2) 11/18/18 07:30 Albumin 3.3 g/dl (3.4-5.0) L 11/18/18 07:30 Urine Color Dk yellow 11/18/18 11:20 Urine Appearance Clear 11/18/18 11:20 Urine pH 5.0 (5.0-8.0) 11/18/18 11:20 Ur Specific [place] 1.024 (1.010-1.035) 11/18/18 11:20 Urine Protein Negative (NEGATIVE) 11/18/18 11:20 Urine Glucose (UA) Negative (NEGATIVE) 11/18/18 11:20 Urine Ketones Trace (NEGATIVE) H 11/18/18 11:20 Urine Blood Negative (NEGATIVE) 11/18/18 11:20 Urine Nitrite Negative (NEGATIVE) 11/18/18 11:20 Urine Bilirubin Negative (NEGATIVE) 11/18/18 11:20 Urine Urobilinogen 0.2 mg/dL (0.2-1.0) 11/18/18 11:20 Ur Leukocyte Esterase Trace (NEGATIVE) 11/18/18 11:20 Urine WBC (Auto) 4 /hpf (0-5) 11/18/18 11:20 Urine RBC (Auto) 3 /hpf (0-4) 11/18/18 11:20 Urine Casts (Auto) 22 /lpf (0-8) 11/18/18 11:20 U Pathogenic Cast Auto None seen /lpf (NEGATIVE) 11/18/18 11:20 U Epithel Cells (Auto) 8.7 /HPF (0-5/HPF) 11/18/18 11:20 Urine Crystals (Auto) See commen /hpf 11/18/18 11:20 Urine Bacteria (Auto) 267.8 /hpf (NEGATIVE) 11/18/18 11:20 POC Urine HCG, Qual Negative 11/17/18 20:08 RPR Titer Nonreactive (NONREACTIVE) 11/18/18 07:30 HIV 1&2 Antibody Screen Negative 11/18/18 07:30 HIV P24 Antigen Negative 11/18/18 07:30 Labs reviewed. Assessment: Flank pain. Alcohol withdrawal. Plan: Repeat UA. Encourage Librium Repeat B/P and notify Provider if still elevated.
[2018-11-20] MEDS: THIAMINE HCL 100 MG TABLET (FP) PO SCH (22:05)
[2018-11-20] MEDS: LIDOCAINE PATCH REMOVAL MC SCH (22:05)
[2018-11-20] MEDS: MELATONIN 5 MG TABLETS PO PRN (22:07)
[2018-11-21] MEDS: hydrOXYzine PAMOATE 25 MG CAPSULE (FP) PO PRN (00:38)
[2018-11-21] MEDS: chlordiazePOXIDE HCL 25 MG CAPSULE PO PRN ×2 (00:38→05:28)
[2018-11-21 06:57] VITALS: BP 156/93; PULSE 92; TEMP 97.2
[2018-11-21] MEDS: NICOTINE 14 MG/24 HOURS TOPICAL PATCH TD SCH (10:04)
[2018-11-21] MEDS: CHOLECALCIFEROL (VIT D3) 1,000 UNIT (25 MCG) TABLET PO SCH (10:05)
[2018-11-21] MEDS: PRENATAL VITAMINS W/ FOLIC ACID TABLET (FP) PO SCH (10:05)
[2018-11-21] MEDS: chlordiazePOXIDE HCL 10 MG CAPSULE PO SCH (10:05)
[2018-11-21] MEDS: SIMETHICONE 80 MG TAB.CHEW (FP) PO SCH (10:05)
--- NOTE | 2018-11-21 13:22 | PN ---
[facility] CIWA - CIWA Score Nausea/Vomitin-No Nausea/No Vomiting Muscle Tremors: 2 Anxiety: 1-Mildly Anxious Agitation: 0-Normal Activity Paroxysmal Sweats: No Perspiration Orientation: 0-Oriented Tacttile Disturbances: 0-None Auditory Disturbances: 0-None Visual Disturbances: 0-None Headache: 0-None Present CIWA-Ar Total Score: 3 BHS Progress Note (SOAP) Subjective: Denies any complaints Objective: 11/21/18 13:30 No acute distress noted Gait steady Vital Signs Temperature 97.2 F L 11/21/18 06:00 Pulse Rate 92 H 11/21/18 06:00 Respiratory Rate 18 11/21/18 06:00 Blood Pressure 156/93 11/21/18 06:00 O2 Sat by Pulse Oximetry (%) Assessment: 11/21/18 13:30 detox completed Plan: for discharge
--- NOTE | 2018-11-21 13:33 | DS ---
[facility] Detox Discharge Summary Admission Date: 11/17/18 Discharge Date: 11/21/18 - History Additional Comments: Pt completed detox successfully States she is going back to her residence [facility] at [address] [place] [address] She said she "gets everything " at the building and that they will take care of her aftercare and medical needs there. She declines any home meds, stating that "they have it there". Denies any complaints - Physical Exam Results Vital Signs: Vital Signs Temperature 97.2 F L 11/21/18 06:00 Pulse Rate 92 H 11/21/18 06:00 Respiratory Rate 18 11/21/18 06:00 Blood Pressure 156/93 11/21/18 06:00 O2 Sat by Pulse Oximetry (%) Pertinent Admission Physical Exam Findings: withdrawal sx - Treatment Hospital Course: Detox Protocol Followed, Detoxed Safely, Responded well, Discharged Condition Good - Medication Discharge Medications: Ambulatory Orders Cholecalciferol (Vitamin D3) [Vitamin D3 -] 1,000 unit PO DAILY 09/29/18 Simethicone [Mylicon -] 80 mg PO QID 09/29/18 - AMA Did Patient Leave Against Medical Advice: No
== END 2018-11-21 10:52 | disposition home or self-care (01) | DRG 774 ==
LOC: YASAS 14:22 → Y6N 20:42
PROVIDERS: ADMIT Surgery; ATTEND Surgery
PROC: HZ2ZZZZ Detoxification Services for Substance Abuse Treatment (ICD-10-PCS; principal; 2018-11-17)
DX: F10.230 Alcohol dependence with withdrawal, uncomplicated (principal); F14.20 Cocaine dependence, uncomplicated; F17.210 Nicotine dependence, cigarettes, uncomplicated; K21.9 Gastro-esophageal reflux disease without esophagitis; R10.9 Unspecified abdominal pain; B18.2 Chronic viral hepatitis C; Z87.42 Personal history of other diseases of the female genital tract; Z88.0 Allergy status to penicillin; Z88.6 Allergy status to analgesic agent
CPT/HCPCS: 36415; 80053; 81003; 81025; 85027; 86593; 87389

== ENCOUNTER 2018-12-24 10:26 | Inpatient (IN) | payer OTHER ==
[2018-12-24 11:51] VITALS: BMI 27.3
--- NOTE | 2018-12-24 14:53 | HP ---
CIWA Score Nausea/Vomitin-Mild Nausea/No Vomiting Muscle Tremors: 3 Anxiety: 1-Mildly Anxious Agitation: 1-Slight > Activity Paroxysmal Sweats: 2 Orientation: 0-Oriented Tacttile Disturbances: 1-Very Mild Itch/Numbness Auditory Disturbances: 1-Very Mild Visual Disturbances: 0-None Headache: 2-Mild CIWA-Ar Total Score: 12 - Admission Criteria OASAS Guidelines: Admission for Medically Managed Detox: Requires at least one of the followin. CIWA greater than 12 2. Seizures within the past 24 hours 3. Delirium tremens within the past 24 hours 4. Hallucinations within the past 24 hours 5. Acute intervention needed for co occurring medical disorder 6. Acute intervention needed for co occurring psychiatric disorder 7. Severe withdrawal that cannot be handled at a lower level of care (continued vomiting, continued diarrhea, abnormal vital signs) requiring intravenous medication and/or fluids 8. Admission [facility] Chief Complaint: 63 y/o F with PMH hep B (tx in past), hep C (not on tx), anxiety, GERD, hiatal hernia, arthritis, who presents for detox from alcohol and cocaine. Allergies/Adverse Reactions: Allergies Allergy/AdvReac Type Severity Reaction Status Date / Time acetaminophen [From Tylenol] Allergy Verified 12/24/18 11:42 iron Allergy Verified 12/24/18 11:42 Penicillins Allergy Verified 12/24/18 11:42 History of Present Illness: 63 y/o F with PMH hep B (tx in past), hep C (not on tx), anxiety, GERD, hiatal hernia, arthritis, who presents for detox from alcohol and cocaine. Per pt, her last drink was at 3AM today. States that throughout the course of yesterday, she drank 4 cases of beer (24 beers total). Drinks daily and at times can go through 50 small cans of beer. Longest sobriety 25 yrs; had been going to rehab and residential living where she was supported "while clean." States that she relapsed 8 months ago because her mother and she was feeling sad. Has had blackouts in the past. Denies alcohol withdrawal seizures. States that she feels tremulous when she withdraws. During this time has also used cocaine when she sees friends. Last used $20 worth via smoking yesterday. States that it is not frequent and usually once every 2-3 weeks. Denies other drug use. Was at rehab/detox at [facility] this year, [facility] well as [facility] past. Was at [facility] in rehab 11/2018, detox 11/2018. PMH: as above PsxH: lap jass, L breast lumpectomy, LLE sx meds: hydroxyzine 25mg qd, vit D allergies: acetaminophen, iron, PCN , fructose, apple peels- cause SOB FH: mother - DM, HTN. asthma in all brothers and sisters SH: retired in 2011 d/t extensive arthritis in her lumbar region. has smoked 1 ppd x since age 21. alcohol and cocaine use as above. denies other drugs. Exam Limitations: No Limitations - Ebola screening Have you traveled outside of the country in the last 21 days: No Have you had contact with anyone from an Ebola affected area: No Have you been sick,other than usual withdrawal symptoms: No Do you have a fever: No - Review of Systems Constitutional: Chills, Night Sweats, Unintentional Wgt. Loss EENT: reports: Nose Congestion Respiratory: reports: No Symptoms reported Cardiac: reports: No Symptoms Reported GI: reports: Constipated, Diarrhea, Nausea : reports: No Symptoms Reported Musculoskeletal: reports: Back Pain, Joint Pain Integumentary: reports: No Symptoms Reported Neuro: reports: Headache Endocrine: reports: No Symptoms Reported Hematology: reports: No Symptoms Reported Psychiatric: reports: Orientated x3, Depressed Patient History - Patient Medical History Hx Anemia: No Hx Asthma: No Hx Chronic Obstructive Pulmonary Disease (COPD): No Hx Cancer: No Hx Cardiac Disorders: No Hx Congestive Heart Failure: No Hx Hypertension: No Hx Hypercholesterolemia: No Hx Pacemaker: No HX Cerebrovascular Accident: No Hx Seizures: No Hx Dementia: No Hx Diabetes: No Hx Gastrointestinal Disorders: Yes (abdominal hernia, GERD) Hx Liver Disease: Yes (Hep C ) Hx Genitourinary Disorders: No Hx Sexually Transmitted Disorders: Yes (gonorrhea ) Hx Renal Disease (ESRD): No Hx Thyroid Disease: No Hx Human Immunodeficiency Virus (HIV): No Hx Hepatitis C: Yes Hx Depression: No Hx Suicide Attempt: No Hx Bipolar Disorder: No Hx Schizophrenia: No - Patient Surgical History Past Surgical History: Yes Hx Neurologic Surgery: No Hx Cataract Extraction: No Hx Cardiac Surgery: No Hx Lung Surgery: No Hx Breast Surgery: No Hx Breast Biopsy: No Hx Abdominal Surgery: No Hx Appendectomy: No Hx Cholecystectomy: Yes Hx Genitourinary Surgery: No Hx Section: No Hx Orthopedic Surgery: No Other Surgical History: L leg sx Anesthesia Reaction: No - PPD History Documented Results: Negative w/o proof Date: 10/01/18 PPD to be Administered?: No - Reproductive History Patient is a Female of Child Bearing Age (11 -55 yrs old): No Patient : No - Smoking Cessation Smoking history: Current every day smoker Have you smoked in the past 12 months: Yes Aproximately how many cigarettes per day: 10 Hx Chewing Tobacco Use: No Initiated information on smoking cessation: Yes 'Breaking Loose' booklet given: 12/24/18 - Substance & Tx. History Hx Alcohol Use: Yes Substance Use Type: Alcohol, Cocaine Hx Substance Use Treatment: Yes ([facility] 2019, jordan, breezy) - Substances abused Alcohol Substance route: Oral Frequency: Daily Amount used: 30 (120z)cans beer Age of first use: 25 Date of last use: 12/23/18 Cocaine Substance route: Smoking Frequency: 1-3 times last 30 days Amount used: $40 Age of first use: 25 Date of last use: 12/23/18 Family Disease History - Family Disease History Family Disease History: Diabetes: Mother, Heart Disease: Mother Admission Physical Exam S - Vital Signs Vital Signs: Vital Signs - 24 hr 12/24/18 12/24/18 11:46 12:13 Temperature 97.6 F 97.6 F Pulse Rate 66 66 Respiratory 16 16 Rate Blood Pressure 140/82 140/82 - Physical General Appearance: Yes: Within Normal Limits HEENTM: Yes: Normal ENT Inspection Respiratory: Yes: Lungs Clear Neck: Yes: Supple Breast: Yes: Breast Exam Deferred Cardiology: Yes: S1, S2 Abdominal: Yes: Soft Genitourinary: Yes: Within Normal Limits Back: Yes: Normal Inspection, Other (+TTP lumbar spine) Musculoskeletal: Yes: Back pain Extremities: Yes: Normal Capillary Refill Neurological: Yes: voice writing reporter II-XII NML intact Integumentary: Yes: Dry, Warm Lymphatic: Yes: Within Normal Limits - Diagnostic (1) Alcohol dependence with uncomplicated withdrawal Current Visit: Yes Status: Chronic (2) Anxiety disorder Current Visit: Yes Status: Chronic (3) Cocaine dependence Current Visit: Yes Status: Chronic Qualifiers: Substance use status: uncomplicated Qualified Code(s): F14.20 - Cocaine dependence, uncomplicated (4) GERD (gastroesophageal reflux disease) Current Visit: Yes Status: Chronic (5) Hepatitis C, chronic Current Visit: Yes Status: Chronic (6) Nicotine dependence Current Visit: Yes Status: Chronic Qualifiers: Nicotine product type: cigarettes Substance use status: uncomplicated Qualified Code(s): F17.210 - Nicotine dependence, cigarettes, uncomplicated Cleared for Admission S - Detox or Rehab [facility] Level of Care: Medically Managed Detox Regimen/Protocol: Librium Breathalyzer - Breathalyzer Breathalyzer: 0 POC Urine test - Test device test lot number: [id number] Expiration date: 02/07/20 - Control test control: Yes Urine Drug Screen - Test Device Lot number: [id number] Expiration date: 10/06/20 - Control Is test valid?: Yes - Results Drug screen NEGATIVE: No Urine drug screen results: THC-Marijuana, BUP-Suboxone Inpatient Rehab Admission - Rehab Decision to Admit Inpatient rehab admission?: No
[2018-12-24] MEDS ORDERED: BISMUTH SUBSALICYLATE 524 MG/30 ML UD PO PRN (15:12)
[2018-12-24] MEDS ORDERED: MENTHOL/PHENOL 1 EACH UD MM PRN (15:12)
[2018-12-24] MEDS ORDERED: IBUPROFEN 400 MG TABLET (FP) PO PRN (15:12)
--- NOTE | 2018-12-24 16:31 | PN ---
Teaching Attending Note Name of Resident: Angie Moore ATTENDING PHYSICIAN STATEMENT I saw and evaluated the patient. I reviewed the resident's note and discussed the case with the resident. I agree with the resident's findings and plan as documented. SUBJECTIVE: ETOH DEP OBJECTIVE: ACUTE WITHDRAWAL ASSESSMENT AND PLAN: ADMIT AND DETOX
[2018-12-24] MEDS: chlordiazePOXIDE HCL 25 MG CAPSULE PO SCH ×2 (16:48→22:14)
[2018-12-24] MEDS: NICOTINE 7 MG/24 HOURS TOPICAL PATCH TD SCH (16:48)
[2018-12-24] MEDS: METHOCARBAMOL 500 MG TABLET PO PRN (16:49)
[2018-12-24] MEDS: MAG HYDROX/AL HYDROX/SIMETH 30 ML UNIT-DOSE CUP PO PRN (17:43)
[2018-12-24] MEDS: MAGNESIUM HYDROX 2400MG/30ML ORAL SUSPENSION 30 ML CUP PO PRN (20:11)
[2018-12-24] MEDS: THIAMINE HCL 100 MG TABLET (FP) PO SCH (22:14)
[2018-12-24] MEDS: MELATONIN 5 MG TABLETS PO PRN (22:15)
[2018-12-25] MEDS: chlordiazePOXIDE HCL 25 MG CAPSULE PO SCH ×4 (05:17→22:31)
[2018-12-25] MEDS: CHOLECALCIFEROL (VIT D3) 1,000 UNIT (25 MCG) TABLET PO SCH (10:07)
[2018-12-25] MEDS: NICOTINE 7 MG/24 HOURS TOPICAL PATCH TD SCH (10:07)
[2018-12-25 12:20] LABS: HEMATOCRIT 35.8 % (32.4-45.2); HEMOGLOBIN 12.1 GM/dL (10.7-15.3); MCH 33.7 pg (25.7-33.7); MCHC 33.7 g/dl (32.0-36.0); MEAN CELL VOLUME 99.9 fl (80-96); MEAN PLT VOLUME 10.4 fl (7.5-11.1); PLATELET COUNT 138 K/MM3 (134-434); RBC 3.58 M/mm3 (3.60-5.2); RDW 12.7 % (11.6-15.6); WHITE BLOOD COUNT 3.3 K/mm3 (4.0-10.0)
--- NOTE | 2018-12-25 12:34 | PN ---
[facility] CIWA - CIWA Score Nausea/Vomitin-Mild Nausea/No Vomiting Muscle Tremors: 2 Anxiety: 2 Agitation: 1-Slight > Activity Paroxysmal Sweats: 3 Orientation: 0-Oriented Tacttile Disturbances: 2-Mild Itch/Numbness/Burn Auditory Disturbances: 0-None Visual Disturbances: 0-None Headache: 0-None Present CIWA-Ar Total Score: 11 S Progress Note (SOAP) Subjective: interrupted sleep, sweats heartburn , Objective: 12/25/18 12:32 Vital Signs Temperature 98.7 F 12/25/18 09:21 Pulse Rate 63 12/25/18 09:21 Respiratory Rate 18 12/25/18 09:21 Blood Pressure 145/77 12/25/18 09:21 O2 Sat by Pulse Oximetry (%) Laboratory Tests 12/25/18 07:00 WBC 3.3 L RBC 3.58 L Hgb 12.1 Hct 35.8 MCV 99.9 H MCH 33.7 MCHC 33.7 RDW 12.7 Plt Count 138 MPV 10.4 pending labs pt aox3 in nad ambulating Assessment: 12/25/18 12:33 withdrawal sx's gerd Plan: cont. detox increase fluids protonix 40mg /day
[2018-12-25 12:36] LABS: ALBUMIN 3.6 g/dl (3.4-5.0); BILIRUBIN,TOTAL 0.3 mg/dL (0.2-1); BLOOD UREA NITROGEN 18.7 mg/dL (7-18); CALCIUM 8.8 mg/dL (8.5-10.1); CREATININE 0.7 mg/dL (0.55-1.3); POTASSIUM 4.1 mmol/L (3.5-5.1); TOT PROT 6.9 g/dl (6.4-8.2)
[2018-12-25] MEDS ORDERED: PANTOPRAZOLE 40 MG TABLET (FP) PO ONE (13:00)
[2018-12-25] MEDS ORDERED: MAGNESIUM CITRATE 300 ML BOTTLE PO ONE (19:18)
[2018-12-25] MEDS: MAG HYDROX/AL HYDROX/SIMETH 30 ML UNIT-DOSE CUP PO PRN (19:21)
[2018-12-25] MEDS: MAGNESIUM HYDROX 2400MG/30ML ORAL SUSPENSION 30 ML CUP PO PRN (19:21)
[2018-12-25] MEDS: chlordiazePOXIDE HCL 25 MG CAPSULE PO PRN (20:04)
[2018-12-25] MEDS: THIAMINE HCL 100 MG TABLET (FP) PO SCH (22:31)
[2018-12-25] MEDS: hydrOXYzine HCL 25 MG TABLET (FP) PO PRN (22:31)
[2018-12-25] MEDS: METHOCARBAMOL 500 MG TABLET PO PRN (22:31)
[2018-12-25] MEDS ORDERED: MELATONIN 5 MG TABLETS PO ONE (23:51)
[2018-12-26] MEDS: chlordiazePOXIDE HCL 25 MG CAPSULE PO SCH ×4 (06:09→22:06)
[2018-12-26] MEDS: METHOCARBAMOL 500 MG TABLET PO PRN ×2 (06:32→17:30)
[2018-12-26] MEDS: NICOTINE 7 MG/24 HOURS TOPICAL PATCH TD SCH (10:35)
[2018-12-26] MEDS: PANTOPRAZOLE 40 MG TABLET (FP) PO SCH (10:35)
[2018-12-26] MEDS: CHOLECALCIFEROL (VIT D3) 1,000 UNIT (25 MCG) TABLET PO SCH (10:35)
--- NOTE | 2018-12-26 11:49 | PN ---
S CIWA - CIWA Score Nausea/Vomitin-No Nausea/No Vomiting Muscle Tremors: 2 Anxiety: 3 Agitation: 1-Slight > Activity Paroxysmal Sweats: 3 Orientation: 0-Oriented Tacttile Disturbances: 0-None Auditory Disturbances: 0-None Visual Disturbances: 0-None Headache: 2-Mild CIWA-Ar Total Score: 11 S Progress Note (SOAP) Subjective: c/o sweats, headache, anxiety, and shakes. Objective: 12/26/18 11:48 Vital Signs 12/26/18 12/26/18 08:18 09:00 Temperature 97 F L 98.1 F Pulse Rate 67 88 Respiratory 18 16 Rate Blood Pressure 141/78 116/65 Lab Results WBC 3.3 K/mm3 (4.0-10.0) L 12/25/18 07:00 RBC 3.58 M/mm3 (3.60-5.2) L 12/25/18 07:00 Hgb 12.1 GM/dL (10.7-15.3) 12/25/18 07:00 Hct 35.8 % (32.4-45.2) 12/25/18 07:00 MCV 99.9 fl (80-96) H 12/25/18 07:00 MCHC 33.7 g/dl (32.0-36.0) 12/25/18 07:00 RDW 12.7 % (11.6-15.6) 12/25/18 07:00 Plt Count 138 K/MM3 (134-434) 12/25/18 07:00 Sodium 140 mmol/L (136-145) 12/25/18 07:00 Potassium 4.1 mmol/L (3.5-5.1) 12/25/18 07:00 Chloride 104 mmol/L (98-107) 12/25/18 07:00 Carbon Dioxide 32 mmol/L (21-32) 12/25/18 07:00 Anion Gap 4 MMOL/L (8-16) L 12/25/18 07:00 BUN 18.7 mg/dL (7-18) H 12/25/18 07:00 Creatinine 0.7 mg/dL (0.55-1.3) 12/25/18 07:00 Random Glucose 114 mg/dL (74-106) H 12/25/18 07:00 Calcium 8.8 mg/dL (8.5-10.1) 12/25/18 07:00 Labs noted. Assessment: 12/26/18 11:49 AOX3, in no acute distress. Full ROM, ambulating in the unit. withdrawal symptoms. Plan: continue detox.
[2018-12-26] MEDS: chlordiazePOXIDE HCL 25 MG CAPSULE PO PRN ×2 (14:30→19:49)
[2018-12-26] MEDS: MELATONIN 5 MG TABLETS PO PRN (22:06)
[2018-12-26] MEDS: THIAMINE HCL 100 MG TABLET (FP) PO SCH (22:06)
[2018-12-26] MEDS: hydrOXYzine HCL 25 MG TABLET (FP) PO PRN (23:46)
[2018-12-27] MEDS: chlordiazePOXIDE HCL 10 MG CAPSULE PO SCH ×4 (06:32→22:06)
[2018-12-27] MEDS: METHOCARBAMOL 500 MG TABLET PO PRN (06:35)
[2018-12-27] MEDS: CHOLECALCIFEROL (VIT D3) 1,000 UNIT (25 MCG) TABLET PO SCH (10:54)
[2018-12-27] MEDS: PANTOPRAZOLE 40 MG TABLET (FP) PO SCH (10:54)
[2018-12-27] MEDS: NICOTINE 7 MG/24 HOURS TOPICAL PATCH TD SCH (10:54)
--- NOTE | 2018-12-27 13:44 | PN ---
S CIWA - CIWA Score Nausea/Vomitin-Mild Nausea/No Vomiting Muscle Tremors: 2 Anxiety: 2 Agitation: 0-Normal Activity Paroxysmal Sweats: 2 Orientation: 0-Oriented Tacttile Disturbances: 0-None Auditory Disturbances: 0-None Visual Disturbances: 0-None Headache: 1-Very Mild CIWA-Ar Total Score: 8 BHS Progress Note (SOAP) Subjective: Patient c/o headache, anxiety, sweating and nausea Objective: 12/27/18 13:43 Laboratory Tests 12/24/18 12/25/18 12/25/18 12:14 07:00 07:00 WBC 3.3 L RBC 3.58 L Hgb 12.1 Hct 35.8 MCV 99.9 H MCH 33.7 MCHC 33.7 RDW 12.7 Plt Count 138 MPV 10.4 Sodium 140 Potassium 4.1 Chloride 104 Carbon Dioxide 32 Anion Gap 4 L BUN 18.7 H Creatinine 0.7 Est GFR (CKD-EPI)AfAm 107.62 Est GFR (CKD-EPI)NonAf 92.86 Random Glucose 114 H Calcium 8.8 Total Bilirubin 0.3 AST 18 ALT 29 Alkaline Phosphatase 92 Total Protein 6.9 Albumin 3.6 POC Urine HCG, Qual Negative RPR Titer HIV 1&2 Antibody Screen HIV P24 Antigen 12/25/18 12/25/18 07:00 07:00 WBC RBC Hgb Hct MCV MCH MCHC RDW Plt Count MPV Sodium Potassium Chloride Carbon Dioxide Anion Gap BUN Creatinine Est GFR (CKD-EPI)AfAm Est GFR (CKD-EPI)NonAf Random Glucose Calcium Total Bilirubin AST ALT Alkaline Phosphatase Total Protein Albumin POC Urine HCG, Qual RPR Titer Nonreactive HIV 1&2 Antibody Screen Negative HIV P24 Antigen Negative Last Vital Signs Temp Pulse Resp BP Pulse Ox 98.2 F 76 18 100/78 12/27/18 09:40 12/27/18 09:40 12/27/18 09:40 12/27/18 09:40 PE: alert and oriented x 3 + facial moisture +perrla eoms intact bl ext full rom, mild tremors amb ad og Assessment: 12/27/18 13:44 withdrawal sx Plan: continue detox monitor
[2018-12-27] MEDS: chlordiazePOXIDE HCL 10 MG CAPSULE PO PRN ×2 (15:16→19:28)
[2018-12-27] MEDS: MAG HYDROX/AL HYDROX/SIMETH 30 ML UNIT-DOSE CUP PO PRN (21:08)
[2018-12-27] MEDS: THIAMINE HCL 100 MG TABLET (FP) PO SCH (22:06)
[2018-12-27] MEDS: MELATONIN 5 MG TABLETS PO PRN (22:07)
[2018-12-27 23:12] VITALS: BP 132/90; PULSE 85; TEMP 98.2
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
[2018-12-28] MEDS ORDERED: chlordiazePOXIDE HCL 10 MG CAPSULE PO SCH (05:00)
[2018-12-29] MEDS ORDERED: chlordiazePOXIDE HCL 10 MG CAPSULE PO ONE (05:00)
== END 2018-12-27 23:47 | disposition left against medical advice (07) | DRG 770 ==
LOC: YASAS 10:26 → Y6N 15:46
PROVIDERS: ADMIT Surgery; ATTEND Surgery
PROC: HZ2ZZZZ Detoxification Services for Substance Abuse Treatment (ICD-10-PCS; principal; 2018-12-24)
DX: F10.230 Alcohol dependence with withdrawal, uncomplicated (principal); F14.20 Cocaine dependence, uncomplicated; F17.210 Nicotine dependence, cigarettes, uncomplicated; F19.282 Other psychoactive substance dependence with psychoactive substance-induced sleep disorder; F41.9 Anxiety disorder, unspecified; K21.9 Gastro-esophageal reflux disease without esophagitis; R03.0 Elevated blood-pressure reading, without diagnosis of hypertension; B18.2 Chronic viral hepatitis C; Z88.0 Allergy status to penicillin; Z88.6 Allergy status to analgesic agent
CPT/HCPCS: 36415; 80053; 81025; 85027; 86593; 87389

== ENCOUNTER 2019-03-22 11:37 | Inpatient (IN) | payer OTHER ==
[2019-03-22 12:07] VITALS: BMI 24.9
--- NOTE | 2019-03-22 12:48 | HP ---
CIWA Score Nausea/Vomitin Muscle Tremors: 5 Anxiety: 1-Mildly Anxious Agitation: 0-Normal Activity Paroxysmal Sweats: 2 Orientation: 0-Oriented Tacttile Disturbances: 0-None Auditory Disturbances: 0-None Visual Disturbances: 0-None Headache: 2-Mild CIWA-Ar Total Score: 13 - Admission Criteria OASAS Guidelines: Admission for Medically Managed Detox: Requires at least one of the followin. CIWA greater than 12 2. Seizures within the past 24 hours 3. Delirium tremens within the past 24 hours 4. Hallucinations within the past 24 hours 5. Acute intervention needed for co occurring medical disorder 6. Acute intervention needed for co occurring psychiatric disorder 7. Severe withdrawal that cannot be handled at a lower level of care (continued vomiting, continued diarrhea, abnormal vital signs) requiring intravenous medication and/or fluids 8. Admitting History and Physical - Smoking History Smoking history: Current every day smoker Have you smoked in the past 12 months: Yes Aproximately how many cigarettes per day: 10 - Alcohol/Substance Use Hx Alcohol Use: Yes Admission [facility] Chief Complaint: "detox from alcohol" Allergies/Adverse Reactions: Allergies Allergy/AdvReac Type Severity Reaction Status Date / Time fructose Allergy Intermediate Verified 03/22/19 12:02 acetaminophen [From Tylenol] Allergy Verified 03/22/19 12:02 iron Allergy Verified 03/22/19 12:02 Penicillins Allergy Verified 03/22/19 12:02 History of Present Illness: 63 y/o F with PMH hep B (tx in past), hep C (not on tx), anxiety, GERD, hiatal hernia, arthritis, cramps who presents for detox from alcohol and cocaine. Last drink last night. Longest sobriety is 25 years. Last in detox in December, but relapsed after she came home and fell to the ground, started to feel "the shakes " and had to drink alcohol again to prevent them. Alcohol: last used yesterday, 15 cans of tall beer daily. Has blacked out in the past. Denies alcohol withdrawal seizures. Reports getting tremulous when she starts to withdraw. Started drinking 24 years ago Cocaine: $40-60 dollars per day, last used last night; smokes it, started drinking 24 years ago Cigarettes: 1 pack a day since 25 years old PSH: Eric cota breast lumpectomy, LUISA sx Lives at "drug infested building" allergies: acetaminophen, iron, PCN , fructose, apple peels- cause SOB FH: mother - DM, HTN. asthma in all brothers and sisters SH: retired in 2011 d/t extensive arthritis in her lumbar region. has smoked 1 ppd x since age 21. Was at rehab/detox at [facility] this year, as well as [facility] in the distant past. Was at [facility] in rehab 11/2018, detox 11/2018. - Ebola screening Have you traveled outside of the country in the last 21 days: No Have you had contact with anyone from an Ebola affected area: No Do you have a fever: No - Review of Systems Constitutional: Chills, Diaphoresis, Fever, Unintentional Wgt. Loss EENT: reports: Nose Congestion Respiratory: reports: Cough, Productive cough Cardiac: reports: Lightheadedness GI: reports: Diarrhea : reports: No Symptoms Reported Musculoskeletal: reports: Back Pain, Joint Pain, Muscle Pain Integumentary: reports: No Symptoms Reported Neuro: reports: Headache, Numbness Endocrine: reports: No Symptoms Reported, Change in Weight Hematology: reports: No Symptoms Reported Psychiatric: reports: Judgement Intact, Mood/Affect Appropiate, Orientated x3 Patient History - Patient Medical History Hx Anemia: No Hx Asthma: No Hx Chronic Obstructive Pulmonary Disease (COPD): No Hx Cancer: No Hx Cardiac Disorders: No Hx Congestive Heart Failure: No Hx Hypertension: No Hx Hypercholesterolemia: No Hx Pacemaker: No HX Cerebrovascular Accident: No Hx Seizures: No Hx Dementia: No Hx Diabetes: No Hx Gastrointestinal Disorders: Yes (Hx GERD) Hx Liver Disease: Yes (Hep C ) Hx Genitourinary Disorders: No Hx Sexually Transmitted Disorders: No Hx Renal Disease (ESRD): No Hx Thyroid Disease: No Hx Human Immunodeficiency Virus (HIV): No Hx Hepatitis C: Yes Hx Depression: Yes Hx Suicide Attempt: No Hx Bipolar Disorder: No Hx Schizophrenia: No - Patient Surgical History Past Surgical History: Yes Hx Neurologic Surgery: No Hx Cataract Extraction: No Hx Cardiac Surgery: No Hx Lung Surgery: No Hx Breast Surgery: No Hx Breast Biopsy: No Hx Abdominal Surgery: No Hx Appendectomy: No Hx Cholecystectomy: Yes Hx Genitourinary Surgery: No Hx Section: No Hx Orthopedic Surgery: No Other Surgical History: L leg sx Anesthesia Reaction: No - PPD History Date: 10/01/18 Results: 0 mm - Smoking Cessation Smoking history: Current every day smoker Have you smoked in the past 12 months: Yes Aproximately how many cigarettes per day: 10 Hx Chewing Tobacco Use: No Initiated information on smoking cessation: Yes 'Breaking Loose' booklet given: 03/22/19 - Substances abused Alcohol Substance route: Oral Frequency: Daily Amount used: 30 (120z)cans beer Age of first use: 25 Date of last use: 03/21/19 Cocaine Substance route: Smoking Frequency: 1-3 times last 30 days Amount used: $40 Age of first use: 25 Date of last use: 03/21/19 Admission Physical Exam [facility] - Vital Signs Vital Signs: Vital Signs - 24 hr 03/22/19 12:05 Temperature 98.3 F Pulse Rate 81 Respiratory 16 Rate Blood Pressure 161/92 - Physical General Appearance: Yes: Disheveled HEENTM: Yes: Hearing grossly Normal, Normal ENT Inspection, Normocephalic, Normal Voice, Pharynx Normal Respiratory: Yes: Lungs Clear, Normal Breath Sounds Breast: Yes: Breast Exam Deferred Cardiology: Yes: Regular Rhythm, Regular Rate Abdominal: Yes: Normal Bowel Sounds, Non Tender, Flat, Soft Back: Yes: Within Normal Limits Musculoskeletal: Yes: Within Normal Limits Extremities: Yes: Within Normal Limits, Normal 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, Fully Oriented, Alert, Motor Strength 5/5, Normal Mood/Affect, Normal Response Integumentary: Yes: Normal Color, Dry, Warm Cleared for Admission S - Detox or Rehab [facility] Level of Care: Medically Supervised Breathalyzer - Breathalyzer Breathalyzer: 0 POC Urine test - Test device test lot number: [id number] Expiration date: 02/07/20 - Control test control: Yes Urine Drug Screen - Test Device Lot number: [id number] Expiration date: 11/06/20 - Control Is test valid?: Yes - Results Drug screen NEGATIVE: No Urine drug screen results: QIANA-Cocaine, BZO-Benzodiazepines Inpatient Rehab Admission - Rehab Decision to Admit Inpatient rehab admission?: No
[2019-03-22] MEDS ORDERED: MAGNESIUM HYDROX 2400MG/30ML ORAL SUSPENSION 30 ML CUP PO PRN (12:57)
[2019-03-22] MEDS ORDERED: BISMUTH SUBSALICYLATE 524 MG/30 ML UD PO PRN (12:57)
[2019-03-22] MEDS ORDERED: MAGNESIUM CITRATE 300 ML BOTTLE PO PRN (12:57)
[2019-03-22] MEDS ORDERED: MENTHOL/PHENOL 1 EACH UD MM PRN (12:57)
--- NOTE | 2019-03-22 13:03 | PN ---
Teaching Attending Note Name of Resident: Kenny Miller ATTENDING PHYSICIAN STATEMENT I saw and evaluated the patient. I reviewed the resident's note and discussed the case with the resident. I agree with the resident's findings and plan as documented. SUBJECTIVE: I agree with resident's subjective findings OBJECTIVE: I agree with resident's objective findings. ASSESSMENT AND PLAN: Agree with plan to admit to detox. She was also advised that this time she should continue to rehab as well. Dr. López
[2019-03-22] MEDS ORDERED: chlordiazePOXIDE HCL 25 MG CAPSULE PO ONE (15:00)
[2019-03-22] MEDS: METHOCARBAMOL 500 MG TABLET PO PRN ×2 (15:34→21:59)
[2019-03-22] MEDS: NICOTINE 21 MG/24 HOURS TOPICAL PATCH TD SCH (15:41)
[2019-03-22 16:18] LABS: HEMATOCRIT 37.7 % (32.4-45.2); HEMOGLOBIN 12.2 GM/dL (10.7-15.3); MCH 33.3 pg (25.7-33.7); MCHC 32.4 g/dl (32.0-36.0); MEAN CELL VOLUME 102.9 fl (80-96); MEAN PLT VOLUME 10.7 fl (7.5-11.1); PLATELET COUNT 143 K/MM3 (134-434); RBC 3.66 M/mm3 (3.60-5.2); RDW 13.1 % (11.6-15.6); WHITE BLOOD COUNT 6.2 K/mm3 (4.0-10.0)
[2019-03-22 16:35] LABS: ALBUMIN 3.7 g/dl (3.4-5.0); BILIRUBIN,TOTAL 0.5 mg/dL (0.2-1); BLOOD UREA NITROGEN 23.7 mg/dL (7-18); CALCIUM 8.9 mg/dL (8.5-10.1); CREATININE 0.7 mg/dL (0.55-1.3); POTASSIUM 4.3 mmol/L (3.5-5.1); TOT PROT 7.1 g/dl (6.4-8.2)
[2019-03-22] MEDS: chlordiazePOXIDE HCL 25 MG CAPSULE PO SCH ×2 (17:17→21:59)
[2019-03-22] MEDS: THIAMINE HCL 100 MG TABLET (FP) PO SCH (21:59)
[2019-03-22] MEDS: MELATONIN 5 MG TABLETS PO PRN (21:59)
[2019-03-23] MEDS: chlordiazePOXIDE HCL 25 MG CAPSULE PO SCH ×4 (06:08→22:02)
[2019-03-23] MEDS ORDERED: PRENATAL VITAMINS W/ FOLIC ACID TABLET (FP) PO SCH (10:00)
[2019-03-23] MEDS: NICOTINE 21 MG/24 HOURS TOPICAL PATCH TD SCH (10:31)
[2019-03-23] MEDS: hydrOXYzine PAMOATE 25 MG CAPSULE (FP) PO PRN ×2 (10:33→18:01)
[2019-03-23] MEDS: METHOCARBAMOL 500 MG TABLET PO PRN ×2 (10:33→18:00)
--- NOTE | 2019-03-23 11:33 | PN ---
[facility] CIWA - CIWA Score Nausea/Vomitin-No Nausea/No Vomiting Muscle Tremors: 3 Anxiety: 3 Agitation: 3 Paroxysmal Sweats: 3 Orientation: 0-Oriented Tacttile Disturbances: 0-None Auditory Disturbances: 0-None Visual Disturbances: 0-None Headache: 0-None Present CIWA-Ar Total Score: 12 S Progress Note (SOAP) Subjective: shakes sweats body aches interrupted sleep agitation Objective: 03/23/19 11:33 Vital Signs Temperature 97.9 F 03/23/19 09:28 Pulse Rate 73 03/23/19 09:28 Respiratory Rate 18 03/23/19 09:28 Blood Pressure 145/87 03/23/19 09:28 O2 Sat by Pulse Oximetry (%) Laboratory Tests 03/22/19 03/22/19 03/22/19 12:31 13:25 13:25 WBC 6.2 RBC 3.66 Hgb 12.2 Hct 37.7 MCV 102.9 H MCH 33.3 MCHC 32.4 RDW 13.1 Plt Count 143 MPV 10.7 Sodium 137 Potassium 4.3 Chloride 105 Carbon Dioxide 27 Anion Gap 5 L BUN 23.7 H Creatinine 0.7 Est GFR (CKD-EPI)AfAm 107.62 Est GFR (CKD-EPI)NonAf 92.86 Random Glucose 156 H Calcium 8.9 Total Bilirubin 0.5 AST 41 H ALT 53 Alkaline Phosphatase 127 H Total Protein 7.1 Albumin 3.7 POC Urine HCG, Qual Negative RPR Titer HIV 1&2 Antibody Screen HIV P24 Antigen 03/22/19 03/23/19 13:25 07:50 WBC RBC Hgb Hct MCV MCH MCHC RDW Plt Count MPV Sodium Potassium Chloride Carbon Dioxide Anion Gap BUN Creatinine Est GFR (CKD-EPI)AfAm Est GFR (CKD-EPI)NonAf Random Glucose Calcium Total Bilirubin AST ALT Alkaline Phosphatase Total Protein Albumin POC Urine HCG, Qual RPR Titer Nonreactive HIV 1&2 Antibody Screen Negative HIV P24 Antigen Negative labs noted aaox3 ambulating no acute distress Assessment: 03/23/19 11:33 withdrawal sx Plan: continue detox increase fluids
[2019-03-23] MEDS: THIAMINE HCL 100 MG TABLET (FP) PO SCH (22:02)
[2019-03-23] MEDS: MELATONIN 5 MG TABLETS PO PRN (22:02)
[2019-03-24] MEDS: chlordiazePOXIDE HCL 25 MG CAPSULE PO SCH ×4 (06:38→22:45)
--- NOTE | 2019-03-24 08:56 | PN ---
[facility] CIWA - CIWA Score Nausea/Vomitin-Mild Nausea/No Vomiting Muscle Tremors: 4-Moderate,w/Arms Extend Anxiety: 4-Mod. Anxious/Guarded Agitation: 2 Paroxysmal Sweats: 1-Minimal Palms Moist Orientation: 0-Oriented Tacttile Disturbances: 1-Very Mild Itch/Numbness Auditory Disturbances: 0-None Visual Disturbances: 0-None Headache: 0-None Present CIWA-Ar Total Score: 13 BHS Progress Note (SOAP) Subjective: c/o of shakes, chills, interrupted sleep Objective: Vital Signs Temperature 97.3 F L 03/24/19 07:36 Pulse Rate 82 03/24/19 07:36 Respiratory Rate 18 03/24/19 07:36 Blood Pressure 149/104 H 03/24/19 07:36 O2 Sat by Pulse Oximetry (%) Laboratory Last Values WBC 6.2 K/mm3 (4.0-10.0) 03/22/19 13:25 RBC 3.66 M/mm3 (3.60-5.2) 03/22/19 13:25 Hgb 12.2 GM/dL (10.7-15.3) 03/22/19 13:25 Hct 37.7 % (32.4-45.2) 03/22/19 13:25 MCV 102.9 fl (80-96) H 03/22/19 13:25 MCH 33.3 pg (25.7-33.7) 03/22/19 13:25 MCHC 32.4 g/dl (32.0-36.0) 03/22/19 13:25 RDW 13.1 % (11.6-15.6) 03/22/19 13:25 Plt Count 143 K/MM3 (134-434) 03/22/19 13:25 MPV 10.7 fl (7.5-11.1) 03/22/19 13:25 Sodium 137 mmol/L (136-145) 03/22/19 13:25 Potassium 4.3 mmol/L (3.5-5.1) 03/22/19 13:25 Chloride 105 mmol/L (98-107) 03/22/19 13:25 Carbon Dioxide 27 mmol/L (21-32) 03/22/19 13:25 Anion Gap 5 MMOL/L (8-16) L 03/22/19 13:25 BUN 23.7 mg/dL (7-18) H 03/22/19 13:25 Creatinine 0.7 mg/dL (0.55-1.3) 03/22/19 13:25 Est GFR (CKD-EPI)AfAm 107.62 03/22/19 13:25 Est GFR (CKD-EPI)NonAf 92.86 03/22/19 13:25 Random Glucose 156 mg/dL (74-106) H 03/22/19 13:25 Calcium 8.9 mg/dL (8.5-10.1) 03/22/19 13:25 Total Bilirubin 0.5 mg/dL (0.2-1) 03/22/19 13:25 AST 41 U/L (15-37) H 03/22/19 13:25 ALT 53 U/L (13-61) 03/22/19 13:25 Alkaline Phosphatase 127 U/L (45-117) H 03/22/19 13:25 Total Protein 7.1 g/dl (6.4-8.2) 03/22/19 13:25 Albumin 3.7 g/dl (3.4-5.0) 03/22/19 13:25 POC Urine HCG, Qual Negative 03/22/19 12:31 RPR Titer Nonreactive (NONREACTIVE) 03/22/19 13:25 HIV 1&2 Antibody Screen Negative 03/23/19 07:50 HIV P24 Antigen Negative 03/23/19 07:50 labs reviewed Assessment: 03/24/19 08:58 Aox3 anxious, pacing on the unit mild hand tremors no adventitious breath sounds full ROM no gait disturbance withdrawal sx Plan: increase fluids baclofen 10 mg TID d/c tylenol mild elevated LFTs gabapentin 100 mg PRN TID continue detox continue to monitor follow up with PCP upon discharge
[2019-03-24] MEDS ORDERED: GABAPENTIN 100 MG CAPSULE (FP) PO PRN (08:57)
[2019-03-24] MEDS: MAG HYDROX/AL HYDROX/SIMETH 30 ML UNIT-DOSE CUP PO PRN ×2 (10:06→18:51)
[2019-03-24] MEDS: BACLOFEN 10 MG TABLET (FP) PO SCH ×3 (10:07→22:45)
[2019-03-24] MEDS: NICOTINE 21 MG/24 HOURS TOPICAL PATCH TD SCH (10:07)
[2019-03-24] MEDS: hydrOXYzine PAMOATE 25 MG CAPSULE (FP) PO PRN ×2 (10:08→15:39)
--- NOTE | 2019-03-24 15:08 | PN ---
S Progress Note Note: pt being transferred to and will complete her detox.
[2019-03-24] MEDS: chlordiazePOXIDE HCL 25 MG CAPSULE PO PRN ×2 (15:40→20:07)
[2019-03-24] MEDS: THIAMINE HCL 100 MG TABLET (FP) PO SCH (22:45)
[2019-03-25] MEDS ORDERED: chlordiazePOXIDE HCL 10 MG CAPSULE PO PRN
[2019-03-25] MEDS: BACLOFEN 10 MG TABLET (FP) PO SCH (05:22)
[2019-03-25] MEDS: chlordiazePOXIDE HCL 10 MG CAPSULE PO SCH ×2 (05:22→10:19)
[2019-03-25 09:07] VITALS: BP 148/82; PULSE 86; TEMP 97
[2019-03-25] MEDS: NICOTINE 21 MG/24 HOURS TOPICAL PATCH TD SCH (10:20)
--- NOTE | 2019-03-25 13:39 | DS ---
[facility] Detox Discharge Summary Admission Date: 03/22/19 Discharge Date: 03/25/19 - History Present History: Alcohol Dependence Additional Comments: 63 years old female admitted on 02/20/19 for alcohol withdrawal sx transferred from yesterday demands to leave the detox today patient is alert oriented x 3 steady gait cardiac S1S2 regular rate rhythm respiratory clear lung bilaterally on auscultation extremities full reang of motion - Physical Exam Results Vital Signs: Vital Signs Temperature 97.0 F L 03/25/19 09:06 Pulse Rate 86 03/25/19 09:06 Respiratory Rate 16 03/25/19 09:06 Blood Pressure 148/82 03/25/19 09:06 O2 Sat by Pulse Oximetry (%) Pertinent Admission Physical Exam Findings: alcohol withdrawal sx Laboratory Last Values WBC 6.2 K/mm3 (4.0-10.0) 03/22/19 13:25 RBC 3.66 M/mm3 (3.60-5.2) 03/22/19 13:25 Hgb 12.2 GM/dL (10.7-15.3) 03/22/19 13:25 Hct 37.7 % (32.4-45.2) 03/22/19 13:25 MCV 102.9 fl (80-96) H 03/22/19 13:25 MCH 33.3 pg (25.7-33.7) 03/22/19 13:25 MCHC 32.4 g/dl (32.0-36.0) 03/22/19 13:25 RDW 13.1 % (11.6-15.6) 03/22/19 13:25 Plt Count 143 K/MM3 (134-434) 03/22/19 13:25 MPV 10.7 fl (7.5-11.1) 03/22/19 13:25 Sodium 137 mmol/L (136-145) 03/22/19 13:25 Potassium 4.3 mmol/L (3.5-5.1) 03/22/19 13:25 Chloride 105 mmol/L (98-107) 03/22/19 13:25 Carbon Dioxide 27 mmol/L (21-32) 03/22/19 13:25 Anion Gap 5 MMOL/L (8-16) L 03/22/19 13:25 BUN 23.7 mg/dL (7-18) H 03/22/19 13:25 Creatinine 0.7 mg/dL (0.55-1.3) 03/22/19 13:25 Est GFR (CKD-EPI)AfAm 107.62 03/22/19 13:25 Est GFR (CKD-EPI)NonAf 92.86 03/22/19 13:25 Random Glucose 156 mg/dL (74-106) H 03/22/19 13:25 Calcium 8.9 mg/dL (8.5-10.1) 03/22/19 13:25 Total Bilirubin 0.5 mg/dL (0.2-1) 03/22/19 13:25 AST 41 U/L (15-37) H 03/22/19 13:25 ALT 53 U/L (13-61) 03/22/19 13:25 Alkaline Phosphatase 127 U/L (45-117) H 03/22/19 13:25 Total Protein 7.1 g/dl (6.4-8.2) 03/22/19 13:25 Albumin 3.7 g/dl (3.4-5.0) 03/22/19 13:25 POC Urine HCG, Qual Negative 03/22/19 12:31 RPR Titer Nonreactive (NONREACTIVE) 03/22/19 13:25 HIV 1&2 Antibody Screen Negative 03/23/19 07:50 HIV P24 Antigen Negative 03/23/19 07:50 lab noted - Treatment Hospital Course: Detox Protocol Followed, Responded well Patient has Accepted a [facility] Referral [facility] - Medication Discharge Medications: Ambulatory Orders Cholecalciferol (Vitamin D3) [Vitamin D3 -] 1,000 unit PO DAILY 09/29/18 Hydralazine HCl 25 mg PO HS 03/22/19 - Diagnosis (1) Alcohol dependence with uncomplicated withdrawal Status: Acute (2) GERD (gastroesophageal reflux disease) Status: Chronic Qualifiers: Esophagitis presence: without esophagitis Qualified Code(s): K21.9 - Gastro -esophageal reflux disease without esophagitis (3) Hepatitis C, chronic Status: Chronic Qualifiers: Hepatic coma status: without hepatic coma Qualified Code(s): B18.2 - Chronic viral hepatitis C (4) Nicotine dependence Status: Acute Qualifiers: Nicotine product type: cigarettes Substance use status: in withdrawal Qualified Code(s): F17.213 - Nicotine dependence, cigarettes, with withdrawal - AMA Did Patient Leave Against Medical Advice: Yes
[2019-03-26] MEDS ORDERED: chlordiazePOXIDE HCL 10 MG CAPSULE PO SCH (05:00)
[2019-03-27] MEDS ORDERED: chlordiazePOXIDE HCL 10 MG CAPSULE PO ONE (05:00)
== END 2019-03-25 11:41 | disposition left against medical advice (07) | DRG 770 ==
LOC: YASAS 11:37 → Y6N 13:55 → Y3N 03-24 14:44
PROVIDERS: ADMIT Allergy & Immunology; ATTEND Allergy & Immunology
PROC: HZ2ZZZZ Detoxification Services for Substance Abuse Treatment (ICD-10-PCS; principal; 2019-03-22)
DX: F10.230 Alcohol dependence with withdrawal, uncomplicated (principal); F14.20 Cocaine dependence, uncomplicated; F17.213 Nicotine dependence, cigarettes, with withdrawal; F41.9 Anxiety disorder, unspecified; F32.9 Major depressive disorder, single episode, unspecified; K21.9 Gastro-esophageal reflux disease without esophagitis; B18.2 Chronic viral hepatitis C; Z88.0 Allergy status to penicillin; Z88.8 Allergy status to other drugs, medicaments and biological substances
CPT/HCPCS: 36415; 80053; 81025; 85027; 86593; 87389; J0475

== ENCOUNTER 2019-06-29 12:21 | Inpatient (IN) | payer OTHER ==
[2019-06-29 13:39] VITALS: BMI 24.9
--- NOTE | 2019-06-29 16:25 | HP ---
CIWA Score Nausea/Vomitin Muscle Tremors: 4-Moderate,w/Arms Extend Anxiety: 0-No Anxiety, at Ease Agitation: 1-Slight > Activity Paroxysmal Sweats: 1-Minimal Palms Moist Orientation: 0-Oriented Tacttile Disturbances: 2-Mild Itch/Numbness/Burn Auditory Disturbances: 0-None Visual Disturbances: 0-None Headache: 1-Very Mild CIWA-Ar Total Score: 12 - Admission Criteria OASAS Guidelines: Admission for Medically Managed Detox: Requires at least one of the followin. CIWA greater than 12 2. Seizures within the past 24 hours 3. Delirium tremens within the past 24 hours 4. Hallucinations within the past 24 hours 5. Acute intervention needed for co occurring medical disorder 6. Acute intervention needed for co occurring psychiatric disorder 7. Severe withdrawal that cannot be handled at a lower level of care (continued vomiting, continued diarrhea, abnormal vital signs) requiring intravenous medication and/or fluids 8. Admitting History and Physical - Admission Chief Complaint: detox and rehab for alcohol History of Present Illness: 63 y/o F with PMH hep B (tx in past), hep C (not on tx), anxiety, GERD, hiatal hernia, spondyloarthritis, leg cramps who presents for detox from alcohol. Last drink last night. Longest sobriety is 25 years. started drinking again in 2018.Last in detox in march, but relapsed after she came home she relapsed. she states she wants to do rehab. 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 sh drinks bc she is in pain and sad about mothers Alcohol: last drink while at [facility] today ( 30 min ago) 2 beers, 18 cans of tall beer daily. Has blacked out in the past. Denies alcohol withdrawal seizures. Reports getting tremulous when she starts to withdraw. Started drinking 25 years old Cocaine: $40-60 dollars per day, uses 2x / week. last used this morning ; smokes it, started at 25 yo Cigarettes: 1 pack a day since 14 years old PSH: elian jass, L breast lumpectomy, LLE sx Lives [facility] allergies: acetaminophen, iron, PCN , fructose, apple peels- cause SOB FH: mother - DM, HTN. asthma in all brothers and sisters SH: retired in 2011 d/t extensive arthritis in her lumbar region. volunteers in [employer] History Source: Patient Limitations to Obtaining History: No Limitations - Past Surgical History Past Surgical History: Yes: Cholecystectomy Additional Past Surgical History: R LLE, R breast lumpectomy - Smoking History Smoking history: Current every day smoker Have you smoked in the past 12 months: Yes Aproximately how many cigarettes per day: 10 - Alcohol/Substance Use Hx Alcohol Use: Yes - Social History Usual Living Arrangement: Yes: Other Admission ROS S - HPI Allergies/Adverse Reactions: Allergies Allergy/AdvReac Type Severity Reaction Status Date / Time fructose Allergy Intermediate Verified 03/22/19 12:02 acetaminophen [From Tylenol] Allergy Verified 03/22/19 12:02 iron Allergy Verified 03/22/19 12:02 Penicillins Allergy Verified 03/22/19 12:02 Exam Limitations: No Limitations - Ebola screening Have you traveled outside of the country in the last 21 days: No Have you had contact with anyone from an Ebola affected area: No Do you have a fever: No - Review of Systems Respiratory: reports: Cough. denies: Shortness of Breath Cardiac: denies: Chest Pain GI: reports: Diarrhea, Nausea Musculoskeletal: reports: Muscle Pain, Muscle Weakness Neuro: reports: Headache Patient History - Patient Medical History Hx Anemia: No Hx Asthma: No Hx Chronic Obstructive Pulmonary Disease (COPD): No Hx Cancer: No Hx Cardiac Disorders: No Hx Congestive Heart Failure: No Hx Hypertension: No Hx Hypercholesterolemia: No Hx Pacemaker: No HX Cerebrovascular Accident: No Hx Seizures: No Hx Dementia: No Hx Diabetes: No Hx Gastrointestinal Disorders: Yes (Hx of GERD) Hx Liver Disease: Yes (Hep C ) Hx Genitourinary Disorders: No Hx Sexually Transmitted Disorders: No Hx Renal Disease (ESRD): No Hx Thyroid Disease: No Hx Human Immunodeficiency Virus (HIV): No Hx Hepatitis C: Yes Hx Depression: No Hx Suicide Attempt: No Hx Bipolar Disorder: No Hx Schizophrenia: No - Patient Surgical History Past Surgical History: Yes Hx Neurologic Surgery: No Hx Cataract Extraction: No Hx Cardiac Surgery: No Hx Lung Surgery: No Hx Breast Surgery: No Hx Breast Biopsy: No Hx Abdominal Surgery: No Hx Appendectomy: No Hx Cholecystectomy: Yes Hx Genitourinary Surgery: No Hx Section: No Hx Orthopedic Surgery: No Other Surgical History: L leg sx Anesthesia Reaction: No - PPD History Date: 10/01/18 Results: 0 mm - Smoking Cessation Smoking history: Current every day smoker Have you smoked in the past 12 months: Yes Aproximately how many cigarettes per day: 10 Hx Chewing Tobacco Use: No Initiated information on smoking cessation: Yes 'Breaking Loose' booklet given: 06/29/19 - Substances abused Alcohol Substance route: Oral Frequency: Daily Amount used: 6 packs- 24oz Age of first use: 25 Date of last use: 06/29/19 Cocaine Substance route: Inhalation Frequency: 1-2 times per week Amount used: $20 Age of first use: 25 Date of last use: 06/29/19 Admission Physical Exam BHS - Vital Signs Vital Signs: Vital Signs - 24 hr 06/29/19 06/29/19 13:36 15:13 Temperature 97.6 F 97.6 F Pulse Rate 68 68 Respiratory 18 18 Rate Blood Pressure 156/79 156/79 - Physical General Appearance: Yes: Nourished, Appropriately Dressed, Tremorous HEENTM: Yes: EOMI, Hearing grossly Normal, Normocephalic, Normal Voice, TYE Respiratory: Yes: Lungs Clear, Normal Breath Sounds, No Accessory Muscle Use Cardiology: Yes: Regular Rhythm, Regular Rate, S1, S2. No: JVD, Murmur Abdominal: Yes: Normal Bowel Sounds, Soft. 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, Fully Oriented Integumentary: Yes: Normal Color, Dry, Warm - Diagnostic (1) Alcohol dependence with uncomplicated withdrawal Status: Acute (2) Nicotine dependence Status: Acute Qualifiers: Nicotine product type: cigarettes Substance use status: in withdrawal Qualified Code(s): F17.213 - Nicotine dependence, cigarettes, with withdrawal (3) Hepatitis C, chronic Status: Chronic Qualifiers: Hepatic coma status: without hepatic coma Qualified Code(s): B18.2 - Chronic viral hepatitis C Breathalyzer - Breathalyzer Breathalyzer: 0.127 POC Urine test - Test device test lot number: [id number] Expiration date: 02/07/20 - Control test control: Yes Urine Drug Screen - Test Device Lot number: [id number] Expiration date: 01/06/21 - Control Is test valid?: Yes - Results Drug screen NEGATIVE: No Urine drug screen results: THC-Marijuana, QIANA-Cocaine Inpatient Rehab Admission - Rehab Decision to Admit Inpatient rehab admission?: No
[2019-06-29] MEDS ORDERED: MAGNESIUM CITRATE 300 ML BOTTLE PO PRN (16:50)
[2019-06-29] MEDS ORDERED: IBUPROFEN 400 MG TABLET (FP) PO PRN (16:50)
[2019-06-29] MEDS ORDERED: MAGNESIUM HYDROX 2400MG/30ML ORAL SUSPENSION 30 ML CUP PO PRN (16:50)
[2019-06-29] MEDS ORDERED: MENTHOL/PHENOL 1 EACH UD MM PRN (16:50)
[2019-06-29] MEDS: chlordiazePOXIDE HCL 10 MG CAPSULE PO PRN (18:27)
[2019-06-29] MEDS: chlordiazePOXIDE HCL 25 MG CAPSULE PO SCH (22:27)
[2019-06-29] MEDS: THIAMINE HCL 100 MG TABLET (FP) PO SCH (22:27)
[2019-06-29] MEDS: MELATONIN 5 MG TABLETS PO PRN (22:28)
[2019-06-30] MEDS: chlordiazePOXIDE HCL 25 MG CAPSULE PO SCH ×4 (05:58→22:01)
[2019-06-30] MEDS ORDERED: PRENATAL VITAMINS W/ FOLIC ACID TABLET (FP) PO SCH (10:00)
[2019-06-30] MEDS: MULTIVITAMINS (DAILY MVI) TABLET (FP) PO SCH (10:03)
[2019-06-30] MEDS: METHOCARBAMOL 500 MG TABLET PO PRN ×2 (10:03→16:51)
[2019-06-30] MEDS: NICOTINE 7 MG/24 HOURS TOPICAL PATCH TD SCH (10:03)
[2019-06-30] MEDS: chlordiazePOXIDE HCL 10 MG CAPSULE PO PRN ×2 (10:05→16:51)
[2019-06-30 12:20] LABS: HEMATOCRIT 36.6 % (32.4-45.2); HEMOGLOBIN 12.1 GM/dL (10.7-15.3); MCH 34.6 pg (25.7-33.7); MEAN CELL VOLUME 104.7 fl (80-96); PLATELET COUNT 152 K/MM3 (134-434); RDW 12.7 % (11.6-15.6); WHITE BLOOD COUNT 3.8 K/mm3 (4.0-10.0)
[2019-06-30 12:33] LABS: ALBUMIN 3.3 g/dl (3.4-5.0); BILIRUBIN,TOTAL 0.5 mg/dL (0.2-1); BLOOD UREA NITROGEN 19.6 mg/dL (7-18); CALCIUM 8.8 mg/dL (8.5-10.1); CREATININE 0.8 mg/dL (0.55-1.3); POTASSIUM 4.5 mmol/L (3.5-5.1); TOT PROT 6.6 g/dl (6.4-8.2)
--- NOTE | 2019-06-30 12:45 | PN ---
S CIWA - CIWA Score Nausea/Vomitin Muscle Tremors: 3 Anxiety: 1-Mildly Anxious Agitation: 1-Slight > Activity Paroxysmal Sweats: 2 Orientation: 0-Oriented Tacttile Disturbances: 2-Mild Itch/Numbness/Burn Auditory Disturbances: 0-None Visual Disturbances: 0-None Headache: 0-None Present CIWA-Ar Total Score: 12 BHS Progress Note (SOAP) Subjective: interrupted sleep, sweats, shakes ccramps in feet, Objective: 06/30/19 12:41 Vital Signs Temperature 97.5 F L 06/30/19 10:00 Pulse Rate 84 06/30/19 10:00 Respiratory Rate 16 06/30/19 10:00 Blood Pressure 109/67 06/30/19 10:00 O2 Sat by Pulse Oximetry (%) Laboratory Tests 06/29/19 06/30/19 06/30/19 16:01 08:00 08:00 WBC 3.8 L RBC 3.50 L Hgb 12.1 Hct 36.6 MCV 104.7 H MCH 34.6 H MCHC 33.0 RDW 12.7 Plt Count 152 MPV 10.0 Sodium 139 Potassium 4.5 Chloride 108 H Carbon Dioxide 26 Anion Gap 6 L BUN 19.6 H Creatinine 0.8 Est GFR (CKD-EPI)AfAm 91.58 Est GFR (CKD-EPI)NonAf 79.01 Random Glucose 181 H Calcium 8.8 Total Bilirubin 0.5 AST 20 ALT 38 Alkaline Phosphatase 98 Total Protein 6.6 Albumin 3.3 L POC Urine HCG, Qual Negative RPR Titer 06/30/19 08:00 WBC RBC Hgb Hct MCV MCH MCHC RDW Plt Count MPV Sodium Potassium Chloride Carbon Dioxide Anion Gap BUN Creatinine Est GFR (CKD-EPI)AfAm Est GFR (CKD-EPI)NonAf Random Glucose Calcium Total Bilirubin AST ALT Alkaline Phosphatase Total Protein Albumin POC Urine HCG, Qual RPR Titer Nonreactive Assessment: 06/30/19 12:43 withdrawal sx's muscle cramps Plan: cont detox increase fluuids robaxin prn bcm
[2019-06-30] MEDS ORDERED: CYCLOBENZAPRINE HCL 5 MG TABLET PO SCH (14:00)
[2019-06-30] MEDS: hydrOXYzine PAMOATE 25 MG CAPSULE (FP) PO PRN ×2 (14:48→21:39)
[2019-06-30] MEDS: MAG HYDROX/AL HYDROX/SIMETH 30 ML UNIT-DOSE CUP PO PRN (17:10)
--- NOTE | 2019-06-30 17:41 | PN ---
Teaching Attending Note Name of Resident: Coco Arreola ATTENDING PHYSICIAN STATEMENT I saw and evaluated the patient. I reviewed the resident's note and discussed the case with the resident. I agree with the resident's findings and plan as documented. SUBJECTIVE: pt w/ tremors , here for etoh detox , reports 6-pk x 11 cases / day , starts drinking in the mornings . reports tremors, sweating , agitation , anxiety , irritability . OBJECTIVE: UE tremors , anxious , agitated . Vital Signs - 24 hr 06/29/19 06/30/19 06/30/19 21:17 00:43 03:30 Temperature 98.1 F Pulse Rate Respiratory 18 16 16 Rate Blood Pressure 147/86 06/30/19 06/30/19 06/30/19 06:51 10:00 13:21 Temperature 97.9 F 97.5 F L 98.6 F Pulse Rate 63 84 71 Respiratory 16 16 71 H Rate Blood Pressure 133/71 109/67 135/68 ASSESSMENT AND PLAN: AUD - Librium detox
[2019-06-30] MEDS: THIAMINE HCL 100 MG TABLET (FP) PO SCH (21:39)
[2019-06-30] MEDS: MELATONIN 5 MG TABLETS PO PRN (21:39)
[2019-07-01] MEDS ORDERED: chlordiazePOXIDE 5 MG CAPSULE PO SCH (05:00)
[2019-07-01] MEDS: chlordiazePOXIDE HCL 25 MG CAPSULE PO SCH ×4 (06:11→22:04)
[2019-07-01] MEDS: METHOCARBAMOL 500 MG TABLET PO PRN (06:15)
[2019-07-01] MEDS: MAG HYDROX/AL HYDROX/SIMETH 30 ML UNIT-DOSE CUP PO PRN ×2 (06:15→13:18)
[2019-07-01] MEDS: BISMUTH SUBSALICYLATE 524 MG/30 ML UD PO PRN ×2 (09:28→11:32)
[2019-07-01] MEDS: NICOTINE 7 MG/24 HOURS TOPICAL PATCH TD SCH (10:32)
[2019-07-01] MEDS: MULTIVITAMINS (DAILY MVI) TABLET (FP) PO SCH (10:32)
--- NOTE | 2019-07-01 12:37 | PN ---
[facility] CIWA - CIWA Score Nausea/Vomitin-No Nausea/No Vomiting Muscle Tremors: 3 Anxiety: 2 Agitation: 3 Paroxysmal Sweats: 3 Orientation: 0-Oriented Tacttile Disturbances: 0-None Auditory Disturbances: 0-None Visual Disturbances: 0-None Headache: 0-None Present CIWA-Ar Total Score: 11 S Progress Note (SOAP) Subjective: sweats shakes body aches interrupted sleep Objective: 07/01/19 12:35 Vital Signs Temperature 97.0 F L 07/01/19 11:40 Pulse Rate 89 07/01/19 11:40 Respiratory Rate 17 07/01/19 11:40 Blood Pressure 131/72 07/01/19 11:40 O2 Sat by Pulse Oximetry (%) Laboratory Tests 06/29/19 06/30/19 06/30/19 16:01 08:00 08:00 WBC 3.8 L RBC 3.50 L Hgb 12.1 Hct 36.6 MCV 104.7 H MCH 34.6 H MCHC 33.0 RDW 12.7 Plt Count 152 MPV 10.0 Sodium 139 Potassium 4.5 Chloride 108 H Carbon Dioxide 26 Anion Gap 6 L BUN 19.6 H Creatinine 0.8 Est GFR (CKD-EPI)AfAm 91.58 Est GFR (CKD-EPI)NonAf 79.01 POC Glucometer Random Glucose 181 H Calcium 8.8 Total Bilirubin 0.5 AST 20 ALT 38 Alkaline Phosphatase 98 Total Protein 6.6 Albumin 3.3 L POC Urine HCG, Qual Negative RPR Titer 06/30/19 06/30/19 07/01/19 08:00 16:16 06:08 WBC RBC Hgb Hct MCV MCH MCHC RDW Plt Count MPV Sodium Potassium Chloride Carbon Dioxide Anion Gap BUN Creatinine Est GFR (CKD-EPI)AfAm Est GFR (CKD-EPI)NonAf POC Glucometer 98 115 Random Glucose Calcium Total Bilirubin AST ALT Alkaline Phosphatase Total Protein Albumin POC Urine HCG, Qual RPR Titer Nonreactive aaox3 ambulating no acute distress Assessment: 07/01/19 12:35 withdrawals Plan: continue detox increase fluids roboxin prn
[2019-07-01] MEDS: hydrOXYzine PAMOATE 25 MG CAPSULE (FP) PO PRN (13:20)
[2019-07-01] MEDS ORDERED: LIDOCAINE 5% TOPICAL PATCH TP ONE (13:30)
[2019-07-01] MEDS: chlordiazePOXIDE HCL 25 MG CAPSULE PO PRN (14:55)
--- NOTE | 2019-07-01 18:41 | PN ---
[facility] Progress Note Note: pt insisting to leave facility , states she has to go be with her family . Ambulating freely in hallways and in room, agitated and irritable. Vital Signs - 24 hr 06/30/19 06/30/19 07/01/19 19:11 23:30 00:45 Temperature 97.9 F 97.3 F L Pulse Rate 74 75 Respiratory 18 18 18 Rate Blood Pressure 148/71 148/77 07/01/19 07/01/19 07/01/19 03:46 06:50 11:40 Temperature 97.7 F 97.0 F L Pulse Rate 79 89 Respiratory 18 18 17 Rate Blood Pressure 133/76 131/72 07/01/19 07/01/19 13:47 18:20 Temperature 98.1 F 97.7 F Pulse Rate 78 84 Respiratory 16 17 Rate Blood Pressure 140/95 149/90 Librium recently given to pt . Discussed at length w/ pt risks of leaving prior to completion of detox , safety concerns reagrding sedating medications which may cause dizzuness, drowsiness and falls. Pt agreeable to stay in facility overnight . Counselor present .
[2019-07-01] MEDS ORDERED: LIDOCAINE PATCH REMOVAL MC SCH (22:00)
[2019-07-01] MEDS: MELATONIN 5 MG TABLETS PO PRN (22:04)
[2019-07-01] MEDS: THIAMINE HCL 100 MG TABLET (FP) PO SCH (22:04)
[2019-07-02] MEDS ORDERED: chlordiazePOXIDE HCL 10 MG CAPSULE PO PRN
[2019-07-02] MEDS ORDERED: chlordiazePOXIDE HCL 10 MG CAPSULE PO SCH (05:00)
[2019-07-02] MEDS: chlordiazePOXIDE HCL 25 MG CAPSULE PO SCH ×3 (06:16→18:07)
[2019-07-02] MEDS ORDERED: LIDOCAINE 5% TOPICAL PATCH TP SCH (10:00)
[2019-07-02] MEDS: NICOTINE 7 MG/24 HOURS TOPICAL PATCH TD SCH (10:13)
[2019-07-02] MEDS: chlordiazePOXIDE HCL 25 MG CAPSULE PO PRN (10:14)
[2019-07-02] MEDS: MULTIVITAMINS (DAILY MVI) TABLET (FP) PO SCH (10:14)
[2019-07-02] MEDS: METHOCARBAMOL 500 MG TABLET PO PRN (10:16)
--- NOTE | 2019-07-02 10:56 | PN ---
[facility] CIWA - CIWA Score Nausea/Vomitin-Mild Nausea/No Vomiting Muscle Tremors: 1-None Visible, but [place] Anxiety: 1-Mildly Anxious Agitation: 0-Normal Activity Paroxysmal Sweats: 1-Minimal Palms Moist Orientation: 0-Oriented Tacttile Disturbances: 0-None Auditory Disturbances: 0-None Visual Disturbances: 0-None Headache: 0-None Present CIWA-Ar Total Score: 4 B[facility] Progress Note (SOAP) Subjective: Pt. complains of anxiety, diaphoresis, increased tactile sensations, mild headache/back ache, nausea Objective: Laboratory Last Values WBC 3.8 K/mm3 (4.0-10.0) L 06/30/19 08:00 RBC 3.50 M/mm3 (3.60-5.2) L 06/30/19 08:00 Hgb 12.1 GM/dL (10.7-15.3) 06/30/19 08:00 Hct 36.6 % (32.4-45.2) 06/30/19 08:00 MCV 104.7 fl (80-96) H 06/30/19 08:00 MCH 34.6 pg (25.7-33.7) H 06/30/19 08:00 MCHC 33.0 g/dl (32.0-36.0) 06/30/19 08:00 RDW 12.7 % (11.6-15.6) 06/30/19 08:00 Plt Count 152 K/MM3 (134-434) 06/30/19 08:00 MPV 10.0 fl (7.5-11.1) 06/30/19 08:00 Sodium 139 mmol/L (136-145) 06/30/19 08:00 Potassium 4.5 mmol/L (3.5-5.1) 06/30/19 08:00 Chloride 108 mmol/L (98-107) H 06/30/19 08:00 Carbon Dioxide 26 mmol/L (21-32) 06/30/19 08:00 Anion Gap 6 MMOL/L (8-16) L 06/30/19 08:00 BUN 19.6 mg/dL (7-18) H 06/30/19 08:00 Creatinine 0.8 mg/dL (0.55-1.3) 06/30/19 08:00 Est GFR (CKD-EPI)AfAm 91.58 06/30/19 08:00 Est GFR (CKD-EPI)NonAf 79.01 06/30/19 08:00 POC Glucometer 123 UNITS (80-120) 07/02/19 06:14 Random Glucose 181 mg/dL (74-106) H 06/30/19 08:00 Calcium 8.8 mg/dL (8.5-10.1) 06/30/19 08:00 Total Bilirubin 0.5 mg/dL (0.2-1) 06/30/19 08:00 AST 20 U/L (15-37) 06/30/19 08:00 ALT 38 U/L (13-61) 06/30/19 08:00 Alkaline Phosphatase 98 U/L (45-117) 06/30/19 08:00 Total Protein 6.6 g/dl (6.4-8.2) 06/30/19 08:00 Albumin 3.3 g/dl (3.4-5.0) L 06/30/19 08:00 POC Urine HCG, Qual Negative 06/29/19 16:01 RPR Titer Nonreactive (NONREACTIVE) 06/30/19 08:00 Vital Signs Temperature 97.9 F 07/02/19 10:00 Pulse Rate 81 07/02/19 10:00 Respiratory Rate 18 07/02/19 10:00 Blood Pressure 117/67 07/02/19 10:00 O2 Sat by Pulse Oximetry (%) 07/02/19 11:00 PE Gnl: WD WN, in no significant distress Mental status: awake, alert, oriented to date, place, city, follows complex commands Motor: ambulating in [place] without difficulty 07/02/19 11:02 Assessment: 07/02/19 11:01 1. alcohol withdrawal Plan: 1. continue alcohol withdrawal protocol
--- NOTE | 2019-07-02 15:43 | PN ---
[facility] Progress Note Note: Staff noted patient confused, asked for breakfast, had already eaten Will order ammonia level for the am
--- NOTE | 2019-07-02 17:01 | PN ---
S Progress Note Note: Patient insists on going home early. Still w/ anxiety. Patient requesting to leave despite encouragement to stay. Based on patients self report of physical comfort levels will discharge.
[2019-07-02 17:41] VITALS: BP 120/73; PULSE 91; TEMP 97.7
[2019-07-03] MEDS ORDERED: chlordiazePOXIDE HCL 10 MG CAPSULE PO PRN
--- NOTE | 2019-07-03 00:57 | DS ---
[facility] Detox Discharge Summary Admission Date: 06/29/19 Discharge Date: 07/02/19 - History Present History: Alcohol Dependence, Cocaine Dependence Pertinent Past History: PMH Hep B, Hep C, anxiety, GERD, hiatal hernia, spondyloarthritis, leg cramps. Alcohol use disorder. - Physical Exam Results Vital Signs: Vital Signs Temperature 97.7 F 07/02/19 17:40 Pulse Rate 91 H 07/02/19 17:40 Respiratory Rate 18 07/02/19 17:40 Blood Pressure 120/73 07/02/19 17:40 O2 Sat by Pulse Oximetry (%) Pertinent Admission Physical Exam Findings: Admitted w/ alcohol withdrawal symptoms. Laboratory Last Values WBC 3.8 K/mm3 (4.0-10.0) L 06/30/19 08:00 RBC 3.50 M/mm3 (3.60-5.2) L 06/30/19 08:00 Hgb 12.1 GM/dL (10.7-15.3) 06/30/19 08:00 Hct 36.6 % (32.4-45.2) 06/30/19 08:00 MCV 104.7 fl (80-96) H 06/30/19 08:00 MCH 34.6 pg (25.7-33.7) H 06/30/19 08:00 MCHC 33.0 g/dl (32.0-36.0) 06/30/19 08:00 RDW 12.7 % (11.6-15.6) 06/30/19 08:00 Plt Count 152 K/MM3 (134-434) 06/30/19 08:00 MPV 10.0 fl (7.5-11.1) 06/30/19 08:00 Sodium 139 mmol/L (136-145) 06/30/19 08:00 Potassium 4.5 mmol/L (3.5-5.1) 06/30/19 08:00 Chloride 108 mmol/L (98-107) H 06/30/19 08:00 Carbon Dioxide 26 mmol/L (21-32) 06/30/19 08:00 Anion Gap 6 MMOL/L (8-16) L 06/30/19 08:00 BUN 19.6 mg/dL (7-18) H 06/30/19 08:00 Creatinine 0.8 mg/dL (0.55-1.3) 06/30/19 08:00 Est GFR (CKD-EPI)AfAm 91.58 06/30/19 08:00 Est GFR (CKD-EPI)NonAf 79.01 06/30/19 08:00 POC Glucometer 91 UNITS (80-120) 07/02/19 16:14 Random Glucose 181 mg/dL (74-106) H 06/30/19 08:00 Calcium 8.8 mg/dL (8.5-10.1) 06/30/19 08:00 Total Bilirubin 0.5 mg/dL (0.2-1) 06/30/19 08:00 AST 20 U/L (15-37) 06/30/19 08:00 ALT 38 U/L (13-61) 06/30/19 08:00 Alkaline Phosphatase 98 U/L (45-117) 06/30/19 08:00 Total Protein 6.6 g/dl (6.4-8.2) 06/30/19 08:00 Albumin 3.3 g/dl (3.4-5.0) L 06/30/19 08:00 POC Urine HCG, Qual Negative 06/29/19 16:01 RPR Titer Nonreactive (NONREACTIVE) 06/30/19 08:00 Labs reviewed. - Treatment Hospital Course: Detox Protocol Followed (Patient encouraged to stay longer but declined.), Detoxed Safely, Responded well, Discharged Condition Good (Patient alert and oriented. Anxiety noted, otherwise in no distress. Patient declined NRT.) - Medication Discharge Medications: Ambulatory Orders Cholecalciferol (Vitamin D3) [Vitamin D3 -] 1,000 unit PO DAILY 09/29/18 Hydralazine HCl 25 mg PO HS 03/22/19 - Diagnosis (1) Alcohol dependence with uncomplicated withdrawal Status: Acute (2) Nicotine dependence Status: Acute Qualifiers: Nicotine product type: cigarettes Substance use status: in withdrawal Qualified Code(s): F17.213 - Nicotine dependence, cigarettes, with withdrawal (3) Anxiety disorder Status: Chronic Qualifiers: Anxiety disorder type: unspecified anxiety disorder Qualified Code(s): F41.9 - Anxiety disorder, unspecified (4) Cocaine dependence Status: Chronic Qualifiers: Substance use status: uncomplicated Qualified Code(s): F14.20 - Cocaine dependence, uncomplicated (5) GERD (gastroesophageal reflux disease) Status: Chronic Qualifiers: Esophagitis presence: without esophagitis Qualified Code(s): K21.9 - Gastro -esophageal reflux disease without esophagitis (6) Hepatitis C, chronic Status: Chronic Qualifiers: Hepatic coma status: without hepatic coma Qualified Code(s): B18.2 - Chronic viral hepatitis C - AMA Did Patient Leave Against Medical Advice: No
[2019-07-03] MEDS ORDERED: chlordiazePOXIDE HCL 10 MG CAPSULE PO SCH (05:00)
[2019-07-03] MEDS ORDERED: chlordiazePOXIDE HCL 10 MG CAPSULE PO ONE (05:00)
[2019-07-04] MEDS ORDERED: chlordiazePOXIDE HCL 10 MG CAPSULE PO ONE (05:00)
== END 2019-07-02 17:52 | disposition home or self-care (01) | DRG 774 ==
LOC: YASAS 12:21 → Y6N 17:49
PROVIDERS: ADMIT Allergy & Immunology; ATTEND Allergy & Immunology
PROC: HZ2ZZZZ Detoxification Services for Substance Abuse Treatment (ICD-10-PCS; principal; 2019-06-29)
DX: F10.230 Alcohol dependence with withdrawal, uncomplicated (principal); F14.20 Cocaine dependence, uncomplicated; F17.213 Nicotine dependence, cigarettes, with withdrawal; F41.9 Anxiety disorder, unspecified; B18.2 Chronic viral hepatitis C; K21.9 Gastro-esophageal reflux disease without esophagitis; M62.838 Other muscle spasm; Z86.19 Personal history of other infectious and parasitic diseases; Z88.0 Allergy status to penicillin; Z88.6 Allergy status to analgesic agent; Z91.018 Allergy to other foods
CPT/HCPCS: 36415; 80053; 81025; 82962; 85027; 86593

== ENCOUNTER 2019-07-29 11:47 | Inpatient (IN) | payer OTHER ==
--- NOTE | 2019-07-29 12:00 | BHS.RME ---
Substance Use & Tx History - Substance Use History Alcohol Substance amount: 4 cases of beer Frequency of use: Daily Substance route: Oral Date of Last Use: 07/29/19 Cocaine (Powder) Substance amount: $60 Frequency of use: Daily Substance route: Inhalation (ex: sniffing or snorting) Date of Last Use: 07/29/19 Nicotine Substance amount: 1 pack Frequency of use: Daily Substance route: Smoking Date of Last Use: 07/29/19 - Last Treatment Date of last treatment: 06/29-07/02/19 Treatment type: Substance Use Disorder (MARIA) Where was last treatment: Detox CIWA Nausea/Vomitin Muscle Tremors: 4-Moderate,w/Arms Extend Anxiety: 3 Agitation: 3 Paroxysmal Sweats: 2 Orientation: 1-Uncertain about Date Tacttile Disturbances: 3-Moderate Itch/Numb/Burn Auditory Disturbances: 0-None Visual Disturbances: 0-None Headache: 0-None Present CIWA-Ar Total Score: 21
--- NOTE | 2019-07-29 12:48 | HP ---
CIWA Score Nausea/Vomitin Muscle Tremors: 6 Anxiety: 3 Agitation: 3 Paroxysmal Sweats: 2 Orientation: 2-Disoriented Date<2 days Tacttile Disturbances: 3-Moderate Itch/Numb/Burn Auditory Disturbances: 0-None Visual Disturbances: 0-None Headache: 0-None Present CIWA-Ar Total Score: 24 - Admission Criteria OASAS Guidelines: Admission for Medically Managed Detox: Requires at least one of the followin. CIWA greater than 12 2. Seizures within the past 24 hours 3. Delirium tremens within the past 24 hours 4. Hallucinations within the past 24 hours 5. Acute intervention needed for co occurring medical disorder 6. Acute intervention needed for co occurring psychiatric disorder 7. Severe withdrawal that cannot be handled at a lower level of care (continued vomiting, continued diarrhea, abnormal vital signs) requiring intravenous medication and/or fluids 8. Admitting History and Physical - Admission History of Present Illness: This is a 64 year old female with PMH of Hep C, GERD, macrocytic anemia, spinal arthritis, muscular cramps in legs She presented to the clinic for detox from alcohol. She was admitted Jun [id number] fr detox, but left AMA due to a family emergency. She has been drinking for 7-8 months and had abstained from alcohol for 25 years prior to that. The of her mother last year triggered her alcohol use. She drinks over 4 6-packs of beer daily. Last drink was this morning, consumed multiple beers around 5-6AM. Has had seizures, last one was in 2005. No recent blackouts. Started using cocaine 7-8 months ago, had abstained 25 years before that. Uses $ 60 per day. Last use was overnight. Smokes 1ppd for the past 14 years. 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 Pt requesting rehab following detox - Pt must f/u with PCP after D/C for colonoscopy, Hep C management - Past Surgical History Past Surgical History: Yes: Cholecystectomy - Smoking History Smoking history: Current every day smoker Have you smoked in the past 12 months: Yes Aproximately how many cigarettes per day: 10 - Alcohol/Substance Use Hx Alcohol Use: Yes Admission [facility] Allergies/Adverse Reactions: Allergies Allergy/AdvReac Type Severity Reaction Status Date / Time fructose Allergy Intermediate Verified 03/22/19 12:02 acetaminophen [From Tylenol] Allergy Verified 03/22/19 12:02 iron Allergy Verified 03/22/19 12:02 Penicillins Allergy Verified 03/22/19 12:02 Patient History - Patient Medical History Hx Anemia: No Hx Asthma: No Hx Chronic Obstructive Pulmonary Disease (COPD): No Hx Cancer: No Hx Cardiac Disorders: No Hx Congestive Heart Failure: No Hx Hypertension: No Hx Hypercholesterolemia: No Hx Pacemaker: No HX Cerebrovascular Accident: No Hx Seizures: No Hx Dementia: No Hx Diabetes: No Hx Gastrointestinal Disorders: Yes (Hx of GERD) Hx Liver Disease: Yes (Hep C ) Hx Genitourinary Disorders: No Hx Sexually Transmitted Disorders: No Hx Renal Disease (ESRD): No Hx Thyroid Disease: No Hx Human Immunodeficiency Virus (HIV): No Hx Hepatitis C: Yes Hx Depression: No Hx Suicide Attempt: No Hx Bipolar Disorder: No Hx Schizophrenia: No - Patient Surgical History Past Surgical History: Yes Hx Neurologic Surgery: No Hx Cataract Extraction: No Hx Cardiac Surgery: No Hx Lung Surgery: No Hx Breast Surgery: No Hx Breast Biopsy: No Hx Abdominal Surgery: No Hx Appendectomy: No Hx Cholecystectomy: Yes Hx Genitourinary Surgery: No Hx Section: No Hx Orthopedic Surgery: No Other Surgical History: L leg sx Anesthesia Reaction: No - PPD History Date: 10/01/18 Results: 0 mm - Smoking Cessation Smoking history: Current every day smoker Have you smoked in the past 12 months: Yes Aproximately how many cigarettes per day: 10 Hx Chewing Tobacco Use: No Breathalyzer - Breathalyzer Breathalyzer: 0 POC Urine test - Test device test lot number: [id number] Expiration date: 02/07/20 - Control test control: Yes Urine Drug Screen - Test Device Lot number: [id number] Expiration date: 05/08/21 - Control Is test valid?: Yes - Results Drug screen NEGATIVE: No Urine drug screen results: THC-Marijuana, QIANA-Cocaine, BZO-Benzodiazepines
[2019-07-29] MEDS ORDERED: MAGNESIUM CITRATE 300 ML BOTTLE PO PRN (12:59)
[2019-07-29] MEDS ORDERED: ACETAMINOPHEN 325 MG TABLET (FP) PO PRN ×2 (12:59)
[2019-07-29] MEDS ORDERED: MAGNESIUM HYDROX 2400MG/30ML ORAL SUSPENSION 30 ML CUP PO PRN (12:59)
[2019-07-29] MEDS ORDERED: MENTHOL/PHENOL 1 EACH UD MM PRN (12:59)
[2019-07-29] MEDS ORDERED: IBUPROFEN 400 MG TABLET (FP) PO PRN (12:59)
[2019-07-29 13:51] VITALS: BMI 24.7
[2019-07-29] MEDS: chlordiazePOXIDE HCL 25 MG CAPSULE PO PRN ×2 (14:55→19:21)
[2019-07-29] MEDS: METHOCARBAMOL 500 MG TABLET PO PRN (14:57)
[2019-07-29 17:00] LABS: HEMATOCRIT 36.8 % (32.4-45.2); HEMOGLOBIN 12.2 GM/dL (10.7-15.3); MCH 34.7 pg (25.7-33.7); MCHC 33.1 g/dl (32.0-36.0); MEAN CELL VOLUME 104.8 fl (80-96); MEAN PLT VOLUME 10.9 fl (7.5-11.1); PLATELET COUNT 132 K/MM3 (134-434); RBC 3.51 M/mm3 (3.60-5.2); WHITE BLOOD COUNT 5.1 K/mm3 (4.0-10.0)
[2019-07-29 17:03] LABS: ALBUMIN 3.8 g/dl (3.4-5.0); BILIRUBIN,TOTAL 0.4 mg/dL (0.2-1); BLOOD UREA NITROGEN 16.7 mg/dL (7-18); CALCIUM 8.9 mg/dL (8.5-10.1); CREATININE 0.8 mg/dL (0.55-1.3); POTASSIUM 4.8 mmol/L (3.5-5.1); TOT PROT 7.5 g/dl (6.4-8.2)
[2019-07-29] MEDS: chlordiazePOXIDE HCL 25 MG CAPSULE PO SCH ×2 (17:40→22:17)
[2019-07-29] MEDS: hydrOXYzine PAMOATE 25 MG CAPSULE (FP) PO PRN (17:42)
[2019-07-29] MEDS: MAG HYDROX/AL HYDROX/SIMETH 30 ML UNIT-DOSE CUP PO PRN (19:23)
[2019-07-29] MEDS ORDERED: THIAMINE HCL 100 MG TABLET (FP) PO SCH (22:00)
[2019-07-29] MEDS: hydrALAZINE HCL 25 MG TABLET (FP) PO SCH (22:17)
[2019-07-29] MEDS: THIAMINE HCL 100 MG TABLET (FP) PO SCH (22:18)
[2019-07-30] MEDS: chlordiazePOXIDE HCL 25 MG CAPSULE PO SCH ×4 (06:03→22:17)
[2019-07-30] MEDS ORDERED: PRENATAL VITAMINS W/ FOLIC ACID TABLET (FP) PO SCH (10:00)
[2019-07-30] MEDS: CHOLECALCIFEROL (VIT D3) 1,000 UNIT (25 MCG) TABLET PO SCH (10:37)
--- NOTE | 2019-07-30 11:16 | PN ---
S CIWA - CIWA Score Nausea/Vomitin-Mild Nausea/No Vomiting Muscle Tremors: 2 Anxiety: 2 Agitation: 2 Paroxysmal Sweats: No Perspiration Orientation: 0-Oriented Tacttile Disturbances: 1-Very Mild Itch/Numbness Auditory Disturbances: 0-None Visual Disturbances: 0-None Headache: 1-Very Mild CIWA-Ar Total Score: 9 S Progress Note (SOAP) Subjective: alert,irritable,anxious,interrupted sleep,pain in the body Objective: 07/30/19 11:14 Laboratory Last Values WBC 5.1 K/mm3 (4.0-10.0) 07/29/19 13:20 RBC 3.51 M/mm3 (3.60-5.2) L 07/29/19 13:20 Hgb 12.2 GM/dL (10.7-15.3) 07/29/19 13:20 Hct 36.8 % (32.4-45.2) 07/29/19 13:20 MCV 104.8 fl (80-96) H 07/29/19 13:20 MCH 34.7 pg (25.7-33.7) H 07/29/19 13:20 MCHC 33.1 g/dl (32.0-36.0) 07/29/19 13:20 RDW 13.0 % (11.6-15.6) 07/29/19 13:20 Plt Count 132 K/MM3 (134-434) L 07/29/19 13:20 MPV 10.9 fl (7.5-11.1) 07/29/19 13:20 Sodium 138 mmol/L (136-145) 07/29/19 13:20 Potassium 4.8 mmol/L (3.5-5.1) 07/29/19 13:20 Chloride 106 mmol/L (98-107) 07/29/19 13:20 Carbon Dioxide 28 mmol/L (21-32) 07/29/19 13:20 Anion Gap 4 MMOL/L (8-16) L 07/29/19 13:20 BUN 16.7 mg/dL (7-18) 07/29/19 13:20 Creatinine 0.8 mg/dL (0.55-1.3) 07/29/19 13:20 Est GFR (CKD-EPI)AfAm 90.94 07/29/19 13:20 Est GFR (CKD-EPI)NonAf 78.46 07/29/19 13:20 Random Glucose 185 mg/dL (74-106) H 07/29/19 13:20 Calcium 8.9 mg/dL (8.5-10.1) 07/29/19 13:20 Total Bilirubin 0.4 mg/dL (0.2-1) 07/29/19 13:20 AST 30 U/L (15-37) 07/29/19 13:20 ALT 40 U/L (13-61) 07/29/19 13:20 Alkaline Phosphatase 122 U/L (45-117) H 07/29/19 13:20 Total Protein 7.5 g/dl (6.4-8.2) 07/29/19 13:20 Albumin 3.8 g/dl (3.4-5.0) 07/29/19 13:20 POC Urine HCG, Qual Negative 07/29/19 12:09 HIV 1&2 Antibody Screen Negative 07/29/19 13:20 HIV P24 Antigen Negative 07/29/19 13:20 07/30/19 11:15 Vital Signs Temperature 96.2 F L 07/30/19 08:42 Pulse Rate 71 07/30/19 08:42 Respiratory Rate 16 07/30/19 08:42 Blood Pressure 100/64 07/30/19 08:42 O2 Sat by Pulse Oximetry (%) Assessment: 07/30/19 11:16 withdrawal symptom Plan: continue detox librium regimen,initial glucose 185,bgm bidac,fasting glucose in am
[2019-07-30] MEDS: PYRIDOXINE HCL (B-6) 50 MG TABLET (FP) PO SCH (12:52)
[2019-07-30] MEDS: FOLIC ACID 1 MG TABLET (FP) PO SCH (12:52)
[2019-07-30] MEDS: MULTIVITAMINS (DAILY MVI) TABLET (FP) PO SCH (12:52)
[2019-07-30] MEDS: THIAMINE HCL 100 MG TABLET (FP) PO SCH ×2 (12:52→22:17)
[2019-07-30] MEDS: NICOTINE 21 MG/24 HOURS TOPICAL PATCH TD SCH (12:52)
[2019-07-30] MEDS: ASCORBIC ACID 500 MG TABLET (FP) PO SCH (15:05)
[2019-07-30] MEDS: METHOCARBAMOL 500 MG TABLET PO PRN (15:56)
[2019-07-30] MEDS: MAG HYDROX/AL HYDROX/SIMETH 30 ML UNIT-DOSE CUP PO PRN (15:58)
[2019-07-30] MEDS: MELATONIN 5 MG TABLETS PO PRN (22:17)
[2019-07-30] MEDS: hydrALAZINE HCL 25 MG TABLET (FP) PO SCH (22:17)
[2019-07-31] MEDS: BISMUTH SUBSALICYLATE 524 MG/30 ML UD PO PRN ×2 (05:18→17:44)
[2019-07-31] MEDS: chlordiazePOXIDE HCL 25 MG CAPSULE PO SCH ×4 (05:19→22:03)
[2019-07-31] MEDS: chlordiazePOXIDE HCL 25 MG CAPSULE PO PRN ×3 (07:24→19:08)
[2019-07-31] MEDS: NICOTINE 21 MG/24 HOURS TOPICAL PATCH TD SCH (10:07)
[2019-07-31] MEDS: MULTIVITAMINS (DAILY MVI) TABLET (FP) PO SCH (10:07)
[2019-07-31] MEDS: CHOLECALCIFEROL (VIT D3) 1,000 UNIT (25 MCG) TABLET PO SCH (10:10)
[2019-07-31] MEDS: FOLIC ACID 1 MG TABLET (FP) PO SCH (10:11)
[2019-07-31] MEDS: ASCORBIC ACID 500 MG TABLET (FP) PO SCH (10:11)
[2019-07-31] MEDS: PYRIDOXINE HCL (B-6) 50 MG TABLET (FP) PO SCH (10:12)
[2019-07-31] MEDS: THIAMINE HCL 100 MG TABLET (FP) PO SCH ×2 (10:13→22:03)
--- NOTE | 2019-07-31 11:51 | PN ---
S CIWA - CIWA Score Nausea/Vomitin-No Nausea/No Vomiting Muscle Tremors: 2 Anxiety: 3 Agitation: 0-Normal Activity Paroxysmal Sweats: 3 Orientation: 0-Oriented Tacttile Disturbances: 0-None Auditory Disturbances: 0-None Visual Disturbances: 0-None Headache: 0-None Present CIWA-Ar Total Score: 8 BHS Progress Note (SOAP) Subjective: c/o muscle aches, sweats, shakes, and anxiety. Objective: 07/31/19 11:52 Vital Signs 07/31/19 07/31/19 07:48 08:31 Temperature 96.4 F L 99.8 F H Pulse Rate 75 87 Respiratory 16 18 Rate Blood Pressure 115/68 129/82 Laboratory Last Values WBC 5.1 K/mm3 (4.0-10.0) 07/29/19 13:20 RBC 3.51 M/mm3 (3.60-5.2) L 07/29/19 13:20 Hgb 12.2 GM/dL (10.7-15.3) 07/29/19 13:20 Hct 36.8 % (32.4-45.2) 07/29/19 13:20 MCV 104.8 fl (80-96) H 07/29/19 13:20 MCH 34.7 pg (25.7-33.7) H 07/29/19 13:20 MCHC 33.1 g/dl (32.0-36.0) 07/29/19 13:20 RDW 13.0 % (11.6-15.6) 07/29/19 13:20 Plt Count 132 K/MM3 (134-434) L 07/29/19 13:20 MPV 10.9 fl (7.5-11.1) 07/29/19 13:20 Sodium 138 mmol/L (136-145) 07/29/19 13:20 Potassium 4.8 mmol/L (3.5-5.1) 07/29/19 13:20 Chloride 106 mmol/L (98-107) 07/29/19 13:20 Carbon Dioxide 28 mmol/L (21-32) 07/29/19 13:20 Anion Gap 4 MMOL/L (8-16) L 07/29/19 13:20 BUN 16.7 mg/dL (7-18) 07/29/19 13:20 Creatinine 0.8 mg/dL (0.55-1.3) 07/29/19 13:20 Est GFR (CKD-EPI)AfAm 90.94 07/29/19 13:20 Est GFR (CKD-EPI)NonAf 78.46 07/29/19 13:20 Random Glucose 185 mg/dL (74-106) H 07/29/19 13:20 Fasting Glucose 102 mg/dL (74-106) 07/31/19 07:00 Calcium 8.9 mg/dL (8.5-10.1) 07/29/19 13:20 Total Bilirubin 0.4 mg/dL (0.2-1) 07/29/19 13:20 AST 30 U/L (15-37) 07/29/19 13:20 ALT 40 U/L (13-61) 07/29/19 13:20 Alkaline Phosphatase 122 U/L (45-117) H 07/29/19 13:20 Total Protein 7.5 g/dl (6.4-8.2) 07/29/19 13:20 Albumin 3.8 g/dl (3.4-5.0) 07/29/19 13:20 POC Urine HCG, Qual Negative 07/29/19 12:09 RPR Titer Nonreactive (NONREACTIVE) 07/29/19 13:20 HIV 1&2 Antibody Screen Negative 07/29/19 13:20 HIV P24 Antigen Negative 07/29/19 13:20 Labs noted. Assessment: 07/31/19 11:52 AOX3, in no acute respiratory distress. Full ROM, ambulating in the unit. Withdrawal symptoms. Plan: continue detox.
[2019-07-31] MEDS ORDERED: LOPERAMIDE HCL 2 MG CAPSULE PO ONE (13:17)
[2019-07-31] MEDS: hydrALAZINE HCL 25 MG TABLET (FP) PO SCH (22:03)
[2019-07-31] MEDS: MELATONIN 5 MG TABLETS PO PRN (22:03)
[2019-08-01] MEDS ORDERED: chlordiazePOXIDE HCL 10 MG CAPSULE PO PRN
[2019-08-01] MEDS: hydrOXYzine PAMOATE 25 MG CAPSULE (FP) PO PRN (01:42)
[2019-08-01] MEDS: chlordiazePOXIDE HCL 10 MG CAPSULE PO SCH ×2 (06:36→10:24)
[2019-08-01] MEDS: MULTIVITAMINS (DAILY MVI) TABLET (FP) PO SCH (10:24)
[2019-08-01] MEDS: FOLIC ACID 1 MG TABLET (FP) PO SCH (10:24)
[2019-08-01] MEDS: NICOTINE 21 MG/24 HOURS TOPICAL PATCH TD SCH (10:24)
[2019-08-01] MEDS: THIAMINE HCL 100 MG TABLET (FP) PO SCH (10:24)
[2019-08-01] MEDS: PYRIDOXINE HCL (B-6) 50 MG TABLET (FP) PO SCH (10:24)
[2019-08-01] MEDS: ASCORBIC ACID 500 MG TABLET (FP) PO SCH (10:24)
[2019-08-01] MEDS: CHOLECALCIFEROL (VIT D3) 1,000 UNIT (25 MCG) TABLET PO SCH (10:24)
[2019-08-01] MEDS ORDERED: hydrOXYzine PAMOATE 25 MG CAPSULE (FP) PO ONE (12:55)
--- NOTE | 2019-08-01 12:56 | PN ---
S CIWA - CIWA Score Nausea/Vomitin-No Nausea/No Vomiting Muscle Tremors: 4-Moderate,w/Arms Extend Anxiety: 1-Mildly Anxious Agitation: 2 Paroxysmal Sweats: No Perspiration Orientation: 0-Oriented Tacttile Disturbances: 0-None Auditory Disturbances: 0-None Visual Disturbances: 0-None Headache: 0-None Present CIWA-Ar Total Score: 7 BHS Progress Note (SOAP) Subjective: 64 years old female admitted on 07/29/19 for alcohol withdrawal sx management treating with librium detox regiment feeling ok today ate breakfast and lunch in room tremor anxiety vistaril 25 mg po x 1 Objective: 08/01/19 12:56 Vital Signs Temperature 97.0 F L 08/01/19 08:38 Pulse Rate 90 08/01/19 08:38 Respiratory Rate 20 08/01/19 08:38 Blood Pressure 126/80 08/01/19 08:38 O2 Sat by Pulse Oximetry (%) Laboratory Last Values WBC 5.1 K/mm3 (4.0-10.0) 07/29/19 13:20 RBC 3.51 M/mm3 (3.60-5.2) L 07/29/19 13:20 Hgb 12.2 GM/dL (10.7-15.3) 07/29/19 13:20 Hct 36.8 % (32.4-45.2) 07/29/19 13:20 MCV 104.8 fl (80-96) H 07/29/19 13:20 MCH 34.7 pg (25.7-33.7) H 07/29/19 13:20 MCHC 33.1 g/dl (32.0-36.0) 07/29/19 13:20 RDW 13.0 % (11.6-15.6) 07/29/19 13:20 Plt Count 132 K/MM3 (134-434) L 07/29/19 13:20 MPV 10.9 fl (7.5-11.1) 07/29/19 13:20 Sodium 138 mmol/L (136-145) 07/29/19 13:20 Potassium 4.8 mmol/L (3.5-5.1) 07/29/19 13:20 Chloride 106 mmol/L (98-107) 07/29/19 13:20 Carbon Dioxide 28 mmol/L (21-32) 07/29/19 13:20 Anion Gap 4 MMOL/L (8-16) L 07/29/19 13:20 BUN 16.7 mg/dL (7-18) 07/29/19 13:20 Creatinine 0.8 mg/dL (0.55-1.3) 07/29/19 13:20 Est GFR (CKD-EPI)AfAm 90.94 07/29/19 13:20 Est GFR (CKD-EPI)NonAf 78.46 07/29/19 13:20 POC Glucometer 132 UNITS (80-120) 07/31/19 16:28 Random Glucose 185 mg/dL (74-106) H 07/29/19 13:20 Fasting Glucose 102 mg/dL (74-106) 07/31/19 07:00 Calcium 8.9 mg/dL (8.5-10.1) 07/29/19 13:20 Total Bilirubin 0.4 mg/dL (0.2-1) 07/29/19 13:20 AST 30 U/L (15-37) 07/29/19 13:20 ALT 40 U/L (13-61) 07/29/19 13:20 Alkaline Phosphatase 122 U/L (45-117) H 07/29/19 13:20 Total Protein 7.5 g/dl (6.4-8.2) 07/29/19 13:20 Albumin 3.8 g/dl (3.4-5.0) 07/29/19 13:20 POC Urine HCG, Qual Negative 07/29/19 12:09 RPR Titer Nonreactive (NONREACTIVE) 07/29/19 13:20 HIV 1&2 Antibody Screen Negative 07/29/19 13:20 HIV P24 Antigen Negative 07/29/19 13:20 lab noted Assessment: 08/01/19 12:57 alcohol withdrawal Plan: librium regiment
[2019-08-01] MEDS: BISMUTH SUBSALICYLATE 524 MG/30 ML UD PO PRN (13:11)
[2019-08-01 13:13] VITALS: BP 110/61; PULSE 82; TEMP 98.2
[2019-08-01] MEDS: METHOCARBAMOL 500 MG TABLET PO PRN (13:52)
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
[2019-08-02] MEDS ORDERED: chlordiazePOXIDE HCL 10 MG CAPSULE PO SCH (05:00)
[2019-08-03] MEDS ORDERED: chlordiazePOXIDE HCL 10 MG CAPSULE PO ONE (05:00)
== END 2019-08-01 16:14 | disposition home or self-care (01) | DRG 774 ==
LOC: YASAS 11:47 → Y3N 13:16
PROVIDERS: ADMIT Allergy & Immunology; ATTEND Allergy & Immunology
PROC: HZ2ZZZZ Detoxification Services for Substance Abuse Treatment (ICD-10-PCS; principal; 2019-07-29)
DX: F10.230 Alcohol dependence with withdrawal, uncomplicated (principal); F14.20 Cocaine dependence, uncomplicated; F17.213 Nicotine dependence, cigarettes, with withdrawal; D53.9 Nutritional anemia, unspecified; K21.9 Gastro-esophageal reflux disease without esophagitis; N18.2 Chronic kidney disease, stage 2 (mild); M46.90 Unspecified inflammatory spondylopathy, site unspecified; M62.838 Other muscle spasm; Z88.0 Allergy status to penicillin; Z88.6 Allergy status to analgesic agent; Z91.048 Other nonmedicinal substance allergy status
CPT/HCPCS: 36415; 80053; 81025; 82947; 82962; 85027; 86593; 87389

== ENCOUNTER 2020-08-28 10:46 | Inpatient (IN) | payer OTHER ==
[2020-08-28 11:18] VITALS: BMI 25.4
[2020-08-28] MEDS ORDERED: BISMUTH SUBSALICYLATE 524 MG/30 ML UD PO PRN (12:01)
[2020-08-28] MEDS ORDERED: IBUPROFEN 400 MG TABLET (FP) PO PRN (12:01)
[2020-08-28] MEDS ORDERED: chlordiazePOXIDE HCL 25 MG CAPSULE PO PRN (12:01)
[2020-08-28] MEDS ORDERED: MENTHOL/PHENOL 1 EACH UD MM PRN (12:01)
[2020-08-28] MEDS ORDERED: METHOCARBAMOL 500 MG TABLET PO PRN (12:01)
[2020-08-28] MEDS ORDERED: NICOTINE POLACRILEX 2 MG GUM BUC PRN (12:01)
[2020-08-28] MEDS ORDERED: MAGNESIUM HYDROX 2400MG/30ML ORAL SUSPENSION 30 ML CUP PO PRN (12:01)
[2020-08-28] MEDS ORDERED: MAGNESIUM CITRATE 300 ML BOTTLE PO PRN (12:01)
[2020-08-28] MEDS ORDERED: ACETAMINOPHEN 325 MG TABLET (FP) PO PRN ×2 (12:01)
[2020-08-28] MEDS ORDERED: ONDANSETRON *ODT* 4 MG TABLET SL PRN (12:01)
[2020-08-28] MEDS ORDERED: PRENATAL VITAMINS W/ FOLIC ACID TABLET (FP) PO SCH (12:15)
[2020-08-28] MEDS: hydrOXYzine PAMOATE 25 MG CAPSULE (FP) PO SCH ×3 (14:11→22:21)
[2020-08-28] MEDS: NICOTINE 21 MG/24 HOURS TOPICAL PATCH TD SCH (14:14)
[2020-08-28 14:30] LABS: POTASSIUM 3.7 mmol/L (3.5-5.1)
[2020-08-28 14:32] LABS: ALBUMIN 4.2 g/dl (3.4-5.0)
[2020-08-28 14:34] LABS: HEMOGLOBIN 11.7 GM/dL (10.7-15.3); MCH 34.4 pg (25.7-33.7); MCHC 33.5 g/dl (32.0-36.0); MEAN CELL VOLUME 102.6 fl (80-96); MEAN PLT VOLUME 10.1 fl (7.5-11.1); PLATELET COUNT 167 K/MM3 (134-434); RBC 3.41 M/mm3 (3.60-5.2); RDW 12.5 % (11.6-15.6); WHITE BLOOD COUNT 4.8 K/mm3 (4.0-10.0)
[2020-08-28 14:35] LABS: BILIRUBIN,TOTAL 0.4 mg/dL (0.2-1); CALCIUM 8.9 mg/dL (8.5-10.1); CREATININE 0.7 mg/dL (0.55-1.3)
[2020-08-28 14:37] LABS: TOT PROT 7.8 g/dl (6.4-8.2)
[2020-08-28 17:12] LABS: HIV INTERPRETATION PRESUMPTIVE POSITIVE (NEGATIVE)
[2020-08-28] MEDS: MAG HYDROX/AL HYDROX/SIMETH 30 ML UNIT-DOSE CUP PO PRN (18:04)
[2020-08-28] MEDS: chlordiazePOXIDE HCL 25 MG CAPSULE PO SCH ×2 (18:04→22:20)
[2020-08-28] MEDS: THIAMINE HCL 100 MG TABLET (FP) PO SCH (22:21)
[2020-08-28] MEDS: MELATONIN 5 MG TABLETS PO SCH (23:13)
[2020-08-28] MEDS: SILVER SULFADIAZINE 1% TOP CREAM 400 GM JAR TP SCH (23:14)
[2020-08-29] MEDS: chlordiazePOXIDE HCL 25 MG CAPSULE PO SCH ×4 (05:50→22:18)
[2020-08-29] MEDS: hydrOXYzine PAMOATE 25 MG CAPSULE (FP) PO SCH ×2 (05:50→10:08)
[2020-08-29] MEDS: NICOTINE 21 MG/24 HOURS TOPICAL PATCH TD SCH (10:08)
[2020-08-29] MEDS: SILVER SULFADIAZINE 1% TOP CREAM 400 GM JAR TP SCH ×2 (10:09→22:21)
[2020-08-29] MEDS: MAG HYDROX/AL HYDROX/SIMETH 30 ML UNIT-DOSE CUP PO PRN ×2 (10:15→18:12)
[2020-08-29] MEDS ORDERED: hydrOXYzine PAMOATE 25 MG CAPSULE (FP) PO PRN (12:52)
[2020-08-29] MEDS: THIAMINE HCL 100 MG TABLET (FP) PO SCH (22:19)
[2020-08-29] MEDS: MELATONIN 5 MG TABLETS PO SCH (22:19)
[2020-08-30] MEDS: chlordiazePOXIDE HCL 25 MG CAPSULE PO SCH ×2 (05:48→10:41)
[2020-08-30 06:54] VITALS: PULSE 65
[2020-08-30 09:19] VITALS: BP 128/72; TEMP 97.3
[2020-08-30] MEDS: NICOTINE 21 MG/24 HOURS TOPICAL PATCH TD SCH (09:52)
[2020-08-30] MEDS: SILVER SULFADIAZINE 1% TOP CREAM 400 GM JAR TP SCH (09:53)
[2020-08-31] MEDS ORDERED: chlordiazePOXIDE HCL 10 MG CAPSULE PO PRN
[2020-08-31] MEDS ORDERED: chlordiazePOXIDE HCL 10 MG CAPSULE PO SCH (05:00)
[2020-09-01] MEDS ORDERED: chlordiazePOXIDE HCL 10 MG CAPSULE PO SCH (05:00)
[2020-09-02] MEDS ORDERED: chlordiazePOXIDE HCL 10 MG CAPSULE PO ONE (05:00)
== END 2020-08-30 10:45 | disposition left against medical advice (07) | DRG 770 ==
LOC: YASAS 10:46 → Y3N 12:50
PROVIDERS: ADMIT Allergy & Immunology; ATTEND Allergy & Immunology
PROC: HZ2ZZZZ Detoxification Services for Substance Abuse Treatment (ICD-10-PCS; principal; 2020-08-28)
DX: F10.230 Alcohol dependence with withdrawal, uncomplicated (principal); F14.20 Cocaine dependence, uncomplicated; F17.210 Nicotine dependence, cigarettes, uncomplicated; F19.282 Other psychoactive substance dependence with psychoactive substance-induced sleep disorder; F41.9 Anxiety disorder, unspecified; F43.10 Post-traumatic stress disorder, unspecified; K21.9 Gastro-esophageal reflux disease without esophagitis; B18.2 Chronic viral hepatitis C; R75 Inconclusive laboratory evidence of human immunodeficiency virus [HIV]; T24.111A Burn of first degree of right thigh, initial encounter; T24.101A Burn of first degree of unspecified site of right lower limb, except ankle and foot, initial encounter; Y27.9XXA Contact with unspecified hot objects, undetermined intent, initial encounter; Y93.9 Activity, unspecified; Y92.9 Unspecified place or not applicable; Y99.9 Unspecified external cause status; Z86.19 Personal history of other infectious and parasitic diseases; Z88.0 Allergy status to penicillin; Z88.6 Allergy status to analgesic agent; Z91.048 Other nonmedicinal substance allergy status; Z91.018 Allergy to other foods
CPT/HCPCS: 36415; 80053; 85027; 86593; 86780; 87389; C9803; U0003

== ENCOUNTER 2020-11-28 10:58 | Inpatient (IN) | payer OTHER ==
[2020-11-28] MEDS ORDERED: diazePAM 5 MG TABLET PO SCH (11:00)
[2020-11-28 12:06] VITALS: BMI 26.0
[2020-11-28] MEDS ORDERED: MAG HYDROX/AL HYDROX/SIMETH 30 ML UNIT-DOSE CUP PO PRN (12:28)
[2020-11-28] MEDS ORDERED: IBUPROFEN 400 MG TABLET (FP) PO PRN (12:28)
[2020-11-28] MEDS ORDERED: diazePAM 5 MG TABLET PO PRN (12:28)
[2020-11-28] MEDS ORDERED: MENTHOL/PHENOL 1 EACH UD MM PRN (12:28)
[2020-11-28] MEDS ORDERED: MAGNESIUM HYDROX 2400MG/30ML ORAL SUSPENSION 30 ML CUP PO PRN (12:28)
[2020-11-28] MEDS ORDERED: ONDANSETRON *ODT* 4 MG TABLET SL PRN (12:28)
[2020-11-28] MEDS ORDERED: BISMUTH SUBSALICYLATE 524 MG/30 ML PO PRN (12:28)
[2020-11-28] MEDS ORDERED: MAGNESIUM CITRATE 300 ML BOTTLE PO PRN (12:28)
[2020-11-28] MEDS ORDERED: ACETAMINOPHEN 325 MG TABLET (FP) PO PRN ×2 (12:28)
[2020-11-28] MEDS ORDERED: METHOCARBAMOL 500 MG TABLET PO PRN (12:28)
[2020-11-28] MEDS ORDERED: NICOTINE POLACRILEX 2 MG GUM BUC PRN (12:28)
[2020-11-28] MEDS ORDERED: PRENATAL VITAMINS W/ FOLIC ACID TABLET (FP) PO SCH (12:30)
[2020-11-28] MEDS ORDERED: hydrOXYzine PAMOATE 25 MG CAPSULE (FP) PO PRN (13:24)
[2020-11-28] MEDS ORDERED: hydrOXYzine PAMOATE 25 MG CAPSULE (FP) PO SCH (14:00)
[2020-11-28 14:06] VITALS: BP 133/75; PULSE 77; TEMP 96.5
[2020-11-28] MEDS ORDERED: MULTIVITAMINS (DAILY MVI) TABLET (FP) PO SCH (14:15)
[2020-11-28 15:51] LABS: HEMOGLOBIN 11.2 GM/dL (10.7-15.3); MCH 33.4 pg (25.7-33.7); MCHC 33.1 g/dl (32.0-36.0); MEAN CELL VOLUME 101.1 fl (80-96); MEAN PLT VOLUME 9.1 fl (7.5-11.1); PLATELET COUNT 153 10^3/uL (134-434); RBC 3.36 M/mm3 (3.60-5.2); RDW 12.9 % (11.6-15.6); WHITE BLOOD COUNT 3.5 K/mm3 (4.0-10.0)
[2020-11-28 16:08] LABS: CALCIUM 8.6 mg/dL (8.5-10.1)
[2020-11-28 16:09] LABS: ALBUMIN 3.8 g/dl (3.4-5.0); BLOOD UREA NITROGEN 13.2 mg/dL (7-18)
[2020-11-28 16:12] LABS: CREATININE 0.6 mg/dL (0.55-1.3); TOT PROT 7.9 g/dl (6.4-8.2)
[2020-11-28 16:15] LABS: BILIRUBIN,TOTAL 0.5 mg/dL (0.2-1)
[2020-11-28 18:02] LABS: HIV INTERPRETATION PRESUMPTIVE POSITIVE (NEGATIVE)
[2020-11-28] MEDS ORDERED: MELATONIN 5 MG TABLETS PO SCH (22:00)
[2020-11-28] MEDS ORDERED: THIAMINE HCL 100 MG TABLET (FP) PO SCH (22:00)
[2020-11-29] MEDS ORDERED: NICOTINE 21 MG/24 HOURS TOPICAL PATCH TD SCH (10:00)
[2020-11-30] MEDS ORDERED: diazePAM 5 MG TABLET PO SCH (06:00)
[2020-12-01] MEDS ORDERED: diazePAM 5 MG TABLET PO SCH (06:00)
[2020-12-02] MEDS ORDERED: diazePAM 5 MG TABLET PO ONE (06:00)
== END 2020-11-28 14:50 | disposition left against medical advice (07) | DRG 770 ==
LOC: YASAS 10:58 → Y3N 13:12
PROVIDERS: ADMIT Allergy & Immunology; ATTEND Allergy & Immunology
PROC: HZ2ZZZZ Detoxification Services for Substance Abuse Treatment (ICD-10-PCS; principal; 2020-11-28)
DX: F10.230 Alcohol dependence with withdrawal, uncomplicated (principal); F14.20 Cocaine dependence, uncomplicated; F17.210 Nicotine dependence, cigarettes, uncomplicated; F19.282 Other psychoactive substance dependence with psychoactive substance-induced sleep disorder; F41.9 Anxiety disorder, unspecified; K21.9 Gastro-esophageal reflux disease without esophagitis; B18.2 Chronic viral hepatitis C; Z86.19 Personal history of other infectious and parasitic diseases; Z88.0 Allergy status to penicillin; Z88.6 Allergy status to analgesic agent
CPT/HCPCS: 36415; 80053; 85027; 86593; 86780; 87389; C9803; U0003; U0005

== ENCOUNTER 2021-11-14 12:33 | Inpatient (IN) | payer OTHER ==
[2021-11-14 12:50] VITALS: BMI 24.5
[2021-11-14] MEDS ORDERED: BENZOCAINE/MENTHOL (CHLORASEPTIC ) LOZENGE MM PRN (13:14)
[2021-11-14] MEDS ORDERED: NICOTINE 10 MG CARTRIDGE (INHALER) IH PRN (13:14)
[2021-11-14] MEDS ORDERED: ONDANSETRON *ODT* 4 MG TABLET SL PRN (13:14)
[2021-11-14] MEDS ORDERED: BISMUTH SUBSALICYLATE 524 MG/30 ML PO PRN (13:14)
[2021-11-14] MEDS ORDERED: LOPERAMIDE HCL 2 MG CAPSULE PO PRN (13:14)
[2021-11-14] MEDS ORDERED: MAG HYDROX/AL HYDROX/SIMETH 30 ML UNIT-DOSE CUP PO PRN (13:14)
[2021-11-14] MEDS ORDERED: MAGNESIUM CITRATE 300 ML BOTTLE PO PRN (13:14)
[2021-11-14] MEDS ORDERED: MAGNESIUM HYDROX 2400MG/30ML ORAL SUSPENSION 30 ML CUP PO PRN (13:14)
[2021-11-14] MEDS ORDERED: DICYCLOMINE HCL 10 MG CAPSULE PO PRN (13:14)
[2021-11-14] MEDS: chlordiazePOXIDE HCL 25 MG CAPSULE PO SCH ×2 (17:10→22:47)
[2021-11-14] MEDS: hydrOXYzine PAMOATE 25 MG CAPSULE (FP) PO SCH ×3 (17:11→22:48)
[2021-11-14] MEDS: THIAMINE HCL 100 MG TABLET (FP) PO SCH (22:48)
[2021-11-14] MEDS: MELATONIN 5 MG TABLETS PO SCH (22:48)
[2021-11-15] MEDS: hydrOXYzine PAMOATE 25 MG CAPSULE (FP) PO SCH ×5 (05:31→22:15)
[2021-11-15] MEDS: chlordiazePOXIDE HCL 25 MG CAPSULE PO SCH ×4 (05:31→22:16)
[2021-11-15] MEDS ORDERED: PRENATAL VITAMINS W/ FOLIC ACID TABLET (FP) PO SCH (10:00)
[2021-11-15 10:14] LABS: HEMATOCRIT 31.4 % (32.4-45.2); HEMOGLOBIN 10.2 GM/dL (10.7-15.3); MCH 34.3 pg (25.7-33.7); MCHC 32.5 g/dl (32.0-36.0); MEAN CELL VOLUME 105.3 fl (80-96); MEAN PLT VOLUME 10.5 fl (7.5-11.1); PLATELET COUNT 137 10^3/uL (134-434); RBC 2.98 M/mm3 (3.60-5.2); RDW 12.6 % (11.6-15.6); WHITE BLOOD COUNT 4.1 K/mm3 (4.0-10.0)
[2021-11-15 10:19] LABS: ALBUMIN 3.8 g/dl (3.4-5.0); CALCIUM 8.7 mg/dL (8.5-10.1)
[2021-11-15 10:20] LABS: BLOOD UREA NITROGEN 25.7 mg/dL (7-18)
[2021-11-15 10:23] LABS: CREATININE 0.8 mg/dL (0.55-1.3)
[2021-11-15 10:24] LABS: BILIRUBIN,TOTAL 0.4 mg/dL (0.2-1); TOT PROT 7.2 g/dl (6.4-8.2)
[2021-11-15] MEDS: NICOTINE 7 MG/24 HOURS TOPICAL PATCH TD SCH (10:35)
[2021-11-15] MEDS: amLODIPine BESYLATE 5 MG TABLET (FP) PO SCH (10:36)
[2021-11-15] MEDS: BICTEGRAV/EMTRICIT/TENOFOV (BIKTARVY) 50-200-25 MG TABLET PO SCH (10:36)
[2021-11-15] MEDS: METHOCARBAMOL 500 MG TABLET PO PRN ×2 (10:38→17:58)
[2021-11-15] MEDS: chlordiazePOXIDE HCL 25 MG CAPSULE PO PRN ×2 (14:05→20:36)
[2021-11-15] MEDS: MELATONIN 5 MG TABLETS PO SCH (22:15)
[2021-11-15] MEDS: THIAMINE HCL 100 MG TABLET (FP) PO SCH (22:16)
[2021-11-16] MEDS: chlordiazePOXIDE HCL 25 MG CAPSULE PO PRN (01:42)
[2021-11-16] MEDS: hydrOXYzine PAMOATE 25 MG CAPSULE (FP) PO SCH ×4 (05:19→17:57)
[2021-11-16] MEDS: chlordiazePOXIDE HCL 25 MG CAPSULE PO SCH ×3 (05:19→17:57)
[2021-11-16] MEDS ORDERED: PRENATAL VITAMINS W/ FOLIC ACID TABLET (FP) PO SCH (10:00)
[2021-11-16] MEDS: METHOCARBAMOL 500 MG TABLET PO PRN (10:13)
[2021-11-16] MEDS ORDERED: FOLIC ACID 1 MG TABLET (FP) PO SCH (10:15)
[2021-11-16] MEDS: NICOTINE 7 MG/24 HOURS TOPICAL PATCH TD SCH (10:15)
[2021-11-16] MEDS ORDERED: ASCORBIC ACID 500 MG TABLET (FP) PO SCH (10:15)
[2021-11-16] MEDS ORDERED: MULTIVITAMINS (DAILY MVI) TABLET (FP) PO SCH (10:15)
[2021-11-16] MEDS: BICTEGRAV/EMTRICIT/TENOFOV (BIKTARVY) 50-200-25 MG TABLET PO SCH (10:16)
[2021-11-16] MEDS: amLODIPine BESYLATE 5 MG TABLET (FP) PO SCH (10:16)
[2021-11-16] MEDS ORDERED: PYRIDOXINE HCL (B-6) 50 MG TABLET (FP) PO SCH (10:30)
[2021-11-16] MEDS ORDERED: THIAMINE HCL 100 MG TABLET (FP) PO SCH ×2 (10:53→11:00)
[2021-11-16 13:27] VITALS: TEMP 96.9
[2021-11-16 19:19] VITALS: BP 131/68; PULSE 85
[2021-11-17] MEDS ORDERED: chlordiazePOXIDE HCL 10 MG CAPSULE PO PRN
[2021-11-17] MEDS ORDERED: chlordiazePOXIDE HCL 10 MG CAPSULE PO SCH (05:00)
[2021-11-18] MEDS ORDERED: chlordiazePOXIDE HCL 10 MG CAPSULE PO SCH (05:00)
[2021-11-19] MEDS ORDERED: chlordiazePOXIDE HCL 10 MG CAPSULE PO ONE (05:00)
== END 2021-11-16 20:05 | disposition left against medical advice (07) | DRG 894 ==
LOC: YASAS 12:33 → Y6N 15:15
PROVIDERS: ADMIT Allergy & Immunology; ATTEND Surgery
PROC: HZ2ZZZZ Detoxification Services for Substance Abuse Treatment (ICD-10-PCS; principal; 2021-11-14)
DX: F10.230 Alcohol dependence with withdrawal, uncomplicated (principal); F14.20 Cocaine dependence, uncomplicated; F19.280 Other psychoactive substance dependence with psychoactive substance-induced anxiety disorder; F19.282 Other psychoactive substance dependence with psychoactive substance-induced sleep disorder; F17.210 Nicotine dependence, cigarettes, uncomplicated; F32.A Depression, unspecified; F41.9 Anxiety disorder, unspecified; Z21 Asymptomatic human immunodeficiency virus [HIV] infection status; E55.9 Vitamin D deficiency, unspecified; Z28.310 Unvaccinated for COVID-19; Z88.0 Allergy status to penicillin; Z88.8 Allergy status to other drugs, medicaments and biological substances; Z88.6 Allergy status to analgesic agent; Z91.51 Personal history of suicidal behavior
CPT/HCPCS: 36415; 80053; 85027; 86593; 86780; 87811; C9803-CS; U0003; U0005